=== PATIENT | female | born 1945 | race Two or more races ===

== ENCOUNTER 2018-11-06 22:08 | Emergency (ER) | payer OTHER ==
[~2018-11-06] VITALS: Ht 149.9 cm; Wt 86.2 kg
[2018-11-06 22:20] VITALS: BP 196/83
[2018-11-06] MEDS ORDERED: cefTRIAXone SOD 1,000 MG VL IM ONE (23:45)
[2018-11-06] MEDS ORDERED: DEXAMETHASONE SOD PHOS 10MG/1ML VIAL INJ IM ONE (23:45)
[2018-11-06] MEDS ORDERED: IBUPROFEN 800 MG TAB PO ONE (23:45)
== END 2018-11-07 03:49 | disposition home or self-care (01) ==
LOC: ER 22:12
DX: J06.9 Acute upper respiratory infection, unspecified (principal)
CPT/HCPCS: 96372; 99283; J0696; J1100

== ENCOUNTER 2019-03-16 09:29 | Emergency (ER) | payer OTHER ==
[~2019-03-16] VITALS: Ht 149.9 cm; Wt 72.6 kg
[2019-03-16 10:00] VITALS: BP 160/70
[2019-03-16 10:26] LABS: Basophils # (auto) 0 uL; Basophils % (auto) 0.4 % (0.0-2.0); Eosinophils # (auto) 0.1 uL; Eosinophils % (auto) 1.3 % (0.0-7.0); Hemoglobin 11.7 g/dL (12.2-16.2); Lymphocytes % (auto) 11.2 % (10.0-50.0); Mean Corpuscular Hemoglobin 29.7 pg (28.0-32.0); Mean Corpuscular Hgb Conc. 32.4 g/dL (32.0-36.0); Mean Corpuscular Volume 91.5 fL (80.0-100.0); Monocytes # (auto) 0.4 uL; Monocytes % (auto) 5.2 % (0.0-12.0); Neutrophils % (auto) 81.9 % (37.0-80.0); Platelet Count (auto) 283 10^3/uL (140-450); Red Blood Cells 3.93 10^6/uL (4.0-5.20); Red Cell Distribution Width 13.9 % (11.8-14.3); White Blood Cell 8.6 10^3/uL (4.4-10.8)
[2019-03-16 10:42] LABS: Albumin 3.5 g/dL (3.4-5.0); BUN/Creatinine Ratio 17.8; Calcium 9.2 mg/dL (8.5-10.1); Potassium 4.7 mmol/L (3.5-5.1)
[2019-03-16 10:45] LABS: Urine Bacteria MANY /hpf (None Seen); Urine Blood 2+ /uL (Negative); Urine Mucus FEW (None Seen); Urine Specific Gravity 1.015 (1.001-1.035); Urine WBC 1038 /hpf (0 - 5); Urine WBC Clumps PRESENT /hpf (None Seen)
[2019-03-16 10:45] LABS: Bilirubin, Total 0.3 mg/dL (0.2-1.0)
[2019-03-16] MEDS ORDERED: cefTRIAXone SOD 1,000 MG VL IM ONE (11:00)
[2019-03-16] MEDS ORDERED: LIDOCAINE 2% (LOCAL ANESTH.) PF 5ml SDV ONE (11:06)
== END 2019-03-16 11:32 | disposition home or self-care (01) ==
LOC: ER 09:29
DX: N39.0 Urinary tract infection, site not specified (principal); E11.9 Type 2 diabetes mellitus without complications; I10 Essential (primary) hypertension; Z90.49 Acquired absence of other specified parts of digestive tract; Z90.710 Acquired absence of both cervix and uterus; Z88.8 Allergy status to other drugs, medicaments and biological substances
CPT/HCPCS: 36415; 74176; 80053; 81001; 85025; 96372; 99284; J0696; J2001

== ENCOUNTER 2019-04-23 15:29 | Emergency (ER) | payer OTHER ==
[~2019-04-23] VITALS: Ht 149.9 cm; Wt 77.6 kg
[2019-04-23 19:59] VITALS: BP 153/61
[2019-04-23 20:18] LABS: Urine Bacteria FEW /hpf (None Seen); Urine Blood 2+ /uL (Negative); Urine WBC 573 /hpf (0 - 5); Urine WBC Clumps PRESENT /hpf (None Seen)
== END 2019-04-23 20:33 | disposition home or self-care (01) ==
LOC: ER 15:29
DX: N39.0 Urinary tract infection, site not specified (principal); E11.9 Type 2 diabetes mellitus without complications; I10 Essential (primary) hypertension; Z90.49 Acquired absence of other specified parts of digestive tract; Z90.710 Acquired absence of both cervix and uterus; Z88.6 Allergy status to analgesic agent
CPT/HCPCS: 81001; 99283; J7030

== ENCOUNTER 2019-07-22 08:31 | Emergency (ER) | payer OTHER ==
[~2019-07-22] VITALS: Ht 149.9 cm; Wt 74.5 kg
[2019-07-22 11:05] LABS: Basophils # (auto) 0.1 uL; Basophils % (auto) 0.6 % (0.0-2.0); Eosinophils # (auto) 0.2 uL; Eosinophils % (auto) 1.8 % (0.0-7.0); Hematocrit 31.1 % (36.0-46.0); Lymphocytes # (auto) 1.2 uL; Lymphocytes % (auto) 12.1 % (10.0-50.0); Mean Corpuscular Hemoglobin 28.4 pg (28.0-32.0); Mean Corpuscular Hgb Conc. 32.1 g/dL (32.0-36.0); Mean Corpuscular Volume 88.5 fL (80.0-100.0); Monocytes # (auto) 0.5 uL; Monocytes % (auto) 5.2 % (0.0-12.0); Neutrophils # (auto) 7.9 uL; Neutrophils % (auto) 80.3 % (37.0-80.0); Nucleated Red Blood Cells % 0.1 %; Platelet Count (auto) 381 10^3/uL (140-450); Red Blood Cells 3.52 10^6/uL (4.0-5.20); Red Cell Distribution Width 15.9 % (11.8-14.3); White Blood Cell 9.8 10^3/uL (4.4-10.8)
[2019-07-22 11:25] LABS: Albumin 3.2 g/dL (3.4-5.0); Calcium 9.2 mg/dL (8.5-10.1); Potassium 5.1 mmol/L (3.5-5.1)
[2019-07-22 11:28] LABS: BUN/Creatinine Ratio 14.6; Bilirubin, Total 0.2 mg/dL (0.2-1.0); Total Protein 8.8 g/dL (6.4-8.2)
[2019-07-22 13:07] LABS: Urine Specific Gravity 1.015 (1.001-1.035)
[2019-07-22 13:09] LABS: Urine Blood 3+ /uL (Negative)
[2019-07-22 13:37] LABS: Urine WBC 325 /hpf (0 - 5)
[2019-07-22 13:39] LABS: Urine Bacteria FEW /hpf (None Seen)
[2019-07-22 15:05] VITALS: BP 165/72
== END 2019-07-22 15:14 | disposition home or self-care (01) ==
LOC: ER 08:33
DX: N39.0 Urinary tract infection, site not specified (principal); N93.9 Abnormal uterine and vaginal bleeding, unspecified; E11.9 Type 2 diabetes mellitus without complications; I10 Essential (primary) hypertension; Z90.710 Acquired absence of both cervix and uterus; Z90.49 Acquired absence of other specified parts of digestive tract; Z88.6 Allergy status to analgesic agent; Z88.5 Allergy status to narcotic agent
CPT/HCPCS: 36415; 80053; 81001; 85025

== ENCOUNTER 2020-01-02 17:37 | Inpatient (IN) | payer OTHER ==
[~2020-01-02] VITALS: Ht 149.9 cm; Wt 72.2 kg
[2020-01-02 18:22] LABS: Platelet Count (auto) 370 10^3/uL (140-450); Red Blood Cells 2.88 10^6/uL (4.0-5.20)
[2020-01-02 18:24] LABS: Hematocrit 25.6 % (36.0-46.0); Hemoglobin 7.9 g/dL (12.2-16.2); Mean Corpuscular Hemoglobin 27.3 pg (28.0-32.0); Mean Corpuscular Hgb Conc. 30.8 g/dL (32.0-36.0); Mean Corpuscular Volume 88.7 fL (80.0-100.0); Red Cell Distribution Width 15.7 % (11.8-14.3); White Blood Cell 17.2 10^3/uL (4.4-10.8)
[2020-01-02 18:42] LABS: Albumin 2.4 g/dL (3.4-5.0); Basophils % (manual) 0 (0.0-2.0); Blast Cells 0; Eosinophils % (manual) 0 (0-7); Metamyelocytes % 0; Myelocytes % 0; Potassium 4.6 mmol/L (3.5-5.1); Promyelocytes % 0; Reactive Lymphocytes 0
[2020-01-02 18:44] LABS: BUN/Creatinine Ratio 19.1; Bilirubin, Total 0.3 mg/dL (0.2-1.0); Total Protein 8.4 g/dL (6.4-8.2)
[2020-01-02 18:50] LABS: Urine Bacteria FEW /hpf (None Seen); Urine Blood 3+ /uL (Negative); Urine WBC 3921 /hpf (0 - 5); Urine WBC Clumps PRESENT /hpf (None Seen)
[2020-01-02 18:55] LABS: Urine Specific Gravity 1.012 (1.001-1.035)
[2020-01-02] MEDS ORDERED: SODIUM CHLORIDE 0.9% 1,000 ML IVB ONE (19:19)
[2020-01-02] MEDS ORDERED: cefTRIAXone 1GM/50ML D5W 50 ML IV ONE (19:30)
[2020-01-02] MEDS ORDERED: ASPirin-EC 81 mg tab PO ONE (19:45)
[2020-01-02 20:04] LABS: INR 1.01 (0.9-1.15); Partial Thromboplastin Time 35.4 sec (23.64-32.05)
[2020-01-02] MEDS ORDERED: SODIUM BICARBONATE 8.4 % INJ 50ML VIAL IV ONE (20:30)
[2020-01-02 22:24] LABS: Band Neutrophils % (manual) 2; Lymphocytes % (manual) 4 (10.0-50.0); Monocytes % (manual) 4 (0-12)
[2020-01-03] VITALS (14 sets, daily range): BP systolic 100–147; BP diastolic 42–80
[2020-01-03] MEDS ORDERED: MORPHINE SULF INJ 2 MG/ML SYRINGE 1ML IV PRN
[2020-01-03] MEDS ORDERED: NITROGLYCERIN 0.4 MG SL TAB SL PRN
[2020-01-03] MEDS ORDERED: ENOXAPARIN SOD 60 MG/0.6 ML SYRINGE SC SCH (00:30)
[2020-01-03] MEDS: SODIUM CHLORIDE 0.9% 1,000 ML IV SCH ×2 (00:48→13:13)
--- NOTE | 2020-01-03 01:40 | NUR ---
Admit to [facility] admitted to [facility] via gurney on bi solutions architect, and portable 02. Patient transferred to bed, connected to unit monitoring and oxygen, and weighed by bedscale. Patient oriented to Milton elmore RN, unit, room, bed, and unit policies regarding patient care and visiting hours. All questions and concerns addressed, patient verbalized understanding. NOTE: belongings: night gown, underwear, purse, cell phone with fire extinguisher charger,glasses, and three 20 dollars, three one dollars.
[2020-01-03] MEDS ORDERED: OMEP20TA PO (02:07)
[2020-01-03] MEDS ORDERED: NIFE1TAB30 PO (02:07)
[2020-01-03] MEDS ORDERED: HYDR25TA4 PO (02:07)
[2020-01-03] MEDS ORDERED: GLIP5TAB12 PO (02:07)
[2020-01-03] MEDS ORDERED: OXY5T PO (02:07)
[2020-01-03] MEDS: ACCU-CHEK COMFORT CURVE STRIP VI SCH ×6 (03:46→21:41)
[2020-01-03] MEDS: InsuLIN REG 1unit/0.01ml Soln (100units/ml) SC SCH ×6 (03:47→21:44)
[2020-01-03 05:04] LABS: Basophils # (auto) 0 10 ^3/uL (0-0.2); Basophils % (auto) 0.3 % (0.0-2.0); Eosinophils # (auto) 0 10 ^3/uL (0-0.8); Eosinophils % (auto) 0.2 % (0.0-7.0); Hematocrit 21.6 % (36.0-46.0); Lymphocytes # (auto) 0.9 10 ^3/uL (0.4-5.4); Lymphocytes % (auto) 7.7 % (10.0-50.0); Mean Corpuscular Hemoglobin 27.1 pg (28.0-32.0); Mean Corpuscular Hgb Conc. 31.5 g/dL (32.0-36.0); Mean Corpuscular Volume 85.9 fL (80.0-100.0); Monocytes # (auto) 0.7 10 ^3/uL (0-1.3); Monocytes % (auto) 5.9 % (0.0-12.0); Neutrophils # (auto) 10.4 10 ^3/uL (1.6-8.6); Neutrophils % (auto) 85.9 % (37.0-80.0); Nucleated Red Blood Cells % 0.1 %; Platelet Count (auto) 252 10^3/uL (140-450); Red Blood Cells 2.51 10^6/uL (4.0-5.20); Red Cell Distribution Width 15.9 % (11.8-14.3); White Blood Cell 12.1 10^3/uL (4.4-10.8)
[2020-01-03 05:06] LABS: Hemoglobin 6.8 g/dL (12.2-16.2)
--- NOTE | 2020-01-03 05:10 | NUR ---
CALLED BACK CALL BACK. NOTIFIED LOW HEMOGLOBIN LEVEL ON REPEAT LAB DRAW. ORDERS RECEIVED.
[2020-01-03 05:35] LABS: Cholesterol 138 mg/dL (< 200); HDL Cholesterol 40 mg/dL (40-59); LDL Cholesterol 73 mg/dL (< 100); Triglycerides 177 mg/dL (< 150)
[2020-01-03 07:42] LABS: Albumin 2.4 g/dL (3.4-5.0); Calcium 7.8 mg/dL (8.5-10.1); Potassium 3.6 mmol/L (3.5-5.1)
[2020-01-03 07:46] LABS: Bilirubin, Total 0.3 mg/dL (0.2-1.0); Total Protein 7.6 g/dL (6.4-8.2)
--- NOTE | 2020-01-03 08:00 | NUR ---
BLOOD SUGAR 62. ORANGE JUICE PROVIDED. PATIENT ALERT AND ORIENTED. AWAITING BREAKFAST TRAY.
--- NOTE | 2020-01-03 08:00 | NUR ---
SKIN MOISTURE ASSOCIATED DERMITITIS NOTED TO RIGHT LOWER ABD SLIGHTLY EXTENDING TO LONNY AREA AND HYPERPIGMENTATION TO SACRUM. SKIN CLEANSED, ZGUARD APPLIED. PATIENT STATING AT HOME SHE WAS USING A DIAPER TO STAY DRY DUE TO RETENTION AND SOME LEAKING. PICTURE TO BE TAKEN. W/C ORDER TO BE PLACED. PT CAN ASSIST WITH TURNING AT THIS TIME BUT NEEDS REMINDING.
[2020-01-03 08:01] LABS: BUN/Creatinine Ratio 20.4
[2020-01-03] MEDS: DOCUSATE SOD 100 MG CAP PO SCH (09:43)
[2020-01-03] MEDS: ASPirin 81 mg TAB PO SCH (09:52)
[2020-01-03] MEDS: CARVEDILOL 3.125 MG TAB PO SCH ×2 (09:52→21:41)
--- NOTE | 2020-01-03 09:53 | NUR ---
Selling Underwriter at bedside Presidential Support Specialist updated on patients status. Per Presidential Support Specialist patient pending stress test today. Beta blockers and DAVIDA inhibitor held. Presidential Support Specialist aware of hgb. ok to administer plavix and asa at this time. New orders for OB and Abx at this time as there is no coverage. Addendum: 01/03/20 at 0955 by Muriel Ayon RN Presidential Support Specialist aware of episodes of Atrial fibrillation Rvr- non sustaining.
[2020-01-03] MEDS ORDERED: cefTRIAXone 1GM/50ML D5W 50 ML IV ONE (10:00)
[2020-01-03] MEDS ORDERED: LISINOPRIL 10 MG TAB PO SCH (10:00)
[2020-01-03] MEDS ORDERED: CLOPIDOGREL BISULFATE 75 MG TAB PO SCH (10:00)
--- NOTE | 2020-01-03 10:12 | NUR ---
CRITICAL LAB TROP 1.110. BACKPACKERS MANAGER BERNIE AWARE. SEE NEW ORDERS.
[2020-01-03] MEDS: ADENOSINE 55 MG in GIVE UN-DILUTED 0 ML IV STA (11:04)
--- NOTE | 2020-01-03 11:34 | NUR ---
MARKETING OPERATIONS MANAGER AT BEDSIDE.
--- NOTE | 2020-01-03 12:00 | NUR ---
NUTRITION POOR APPETITE NOTED. REFUSED LUNCH AT THIS TIME.
--- NOTE | 2020-01-03 12:00 | NUR ---
BRADYCARDIA PATIENTS HR NOTED 30'S, PT ASYMPTOMATIC. SLEEPING, BP STABLE 122/42. EXTERNAL PADS IN PLACE. JET DYEING MACHINE OPERATOR PAGED. NO NEW ORDERS AT THIS TIME.
--- NOTE | 2020-01-03 13:15 | NUR ---
NO FURTHER EPISODES OF BRADYCARDIA NOTED AT THIS TIME. VSS.
--- NOTE | 2020-01-03 13:28 | NUR ---
PAGED DR. CONRAD PAGED RE: ORDER VERIFICATION PER U/S TECH.
--- NOTE | 2020-01-03 13:29 | NUR ---
U/S TECH AT BEDSIDE.
--- NOTE | 2020-01-03 13:52 | NUR ---
AT BEDSIDE DR. CONRAD UPDATED ON PATIENTS STATUS. MD AWARE OF HEMATURIA, TROPONIN, BLOOD LEVEL AT THIS TIME. U/S CLARIFICATION COMPLETED. U/S AWARE. SEE NEW ORDERS.
--- NOTE | 2020-01-03 13:54 | NUR ---
NM UPDATED JOLINDSEYH FROM NM UPDATED. MADE AWARE PATIENT HAS NOTED TO BE IN AFIB RVR AND MARGARETH LOW 30'S. STRESS TEST PER BEA IS TO BE HELD.
--- NOTE | 2020-01-03 14:25 | NUR ---
U/S TECH AT BEDSIDE.
--- NOTE | 2020-01-03 14:25 | NUR ---
UROLOGY DR. WHITLEY AT BEDSIDE. MD UPDATED ON PATIENTS STATUS. SEE MD ORDERS. PATIENT TO BE DISCHARGED WITH TEE CATHETER.
[2020-01-03] MEDS ORDERED: DEXTROSE (50%) 50ML SYRG IV PRN ×2 (14:30)
--- NOTE | 2020-01-03 16:00 | NUR ---
ACTIVITY PATIENT ASSISTED OOB TO BSC. PATIENT ONLY ABLE TO PASS GAS. SKIN CARE PROVIDED. PT ASSISTED BACK TO BED WITHOUT INCIDENCE.
--- NOTE | 2020-01-03 18:00 | NUR ---
NUTRITION PATIENT ABLE TO FEED SELF. NO DIFFICULTY SWALLOWING NOTED. VSS.
--- NOTE | 2020-01-03 19:50 | NUR ---
Opening Note Report received from ann JIN. Patient is A/Ox4 resting comfortably in bed, no s/s of distress. Patient connected to monitor, in Sinus Rhythm at this time. Patient on room air, SPO2 at 100%. Physical assessment done-see interventions. Coates catheter in place draining torres red hematuria. Generalized scabs noted throughout body, patient states she scratches herself often. POC discussed with patient. Fall precautions in place, call light within reach.
[2020-01-03] MEDS ORDERED: ATORVASTATIN 20 MG TAB PO SCH (22:00)
--- NOTE | 2020-01-03 22:29 | NUR ---
CRITICAL LAB Troponin 1.14, called in by order entry technician Bela. Cardio already on board and aware of elevated trops. Patient pending for stress test tomorrow. Patient asymptomatic at this time, denies any chest pain or discomfort.
[2020-01-04] VITALS: BP_SYST 140; BP_SYST 147; BP_DIAS 64; BP_DIAS 65
[2020-01-04] MEDS: SODIUM CHLORIDE 0.9% 1,000 ML IV SCH (02:53)
--- NOTE | 2020-01-04 03:42 | NUR ---
AM care Patient given bed bath using CHG wipes and warm soapy wash cloths. Skin reassessed at this time, no new changes. Oral care done at this time, Coates care done. Complete linen and gown change provided to patient. Patient tolerated well. Patient repositioned.
[2020-01-04 03:47] LABS: Basophils # (auto) 0 10 ^3/uL (0-0.2); Basophils % (auto) 0.3 % (0.0-2.0); Eosinophils # (auto) 0.1 10 ^3/uL (0-0.8); Eosinophils % (auto) 0.7 % (0.0-7.0); Hematocrit 27.4 % (36.0-46.0); Hemoglobin 8.9 g/dL (12.2-16.2); Lymphocytes # (auto) 0.7 10 ^3/uL (0.4-5.4); Mean Corpuscular Hemoglobin 28.4 pg (28.0-32.0); Mean Corpuscular Hgb Conc. 32.4 g/dL (32.0-36.0); Mean Corpuscular Volume 87.7 fL (80.0-100.0); Monocytes # (auto) 0.7 10 ^3/uL (0-1.3); Nucleated Red Blood Cells % 0.1 %; Platelet Count (auto) 173 10^3/uL (140-450); Red Blood Cells 3.12 10^6/uL (4.0-5.20); Red Cell Distribution Width 15.5 % (11.8-14.3); White Blood Cell 9.4 10^3/uL (4.4-10.8)
[2020-01-04 04:00] VITALS: BP 149/70
[2020-01-04 04:08] LABS: Calcium 7.2 mg/dL (8.5-10.1); Potassium 3.7 mmol/L (3.5-5.1)
[2020-01-04 04:17] LABS: BUN/Creatinine Ratio 22.1
--- NOTE | 2020-01-04 04:18 | NUR ---
Critical Labs CO2 9 BUN 164 Trop 0.985 All labs trending down. Deisy MURDOCK's aware. Patient pending stress test today, nephro consult and VQ scan for today.
[2020-01-04] MEDS: ACCU-CHEK COMFORT CURVE STRIP VI SCH ×4 (06:13→21:25)
[2020-01-04] MEDS: InsuLIN REG 1unit/0.01ml Soln (100units/ml) SC SCH ×4 (06:15→21:25)
--- NOTE | 2020-01-04 06:25 | NUR ---
2nd IV Line for stress test placed IV insertion IV access obtained, via clean sterile technique by inserting 22 gauge catheter at right forearm after 1 attempt. IV secured properly. No trauma to site. Patient tolerated well.
--- NOTE | 2020-01-04 07:25 | NUR ---
Closing Patient sleeping, visible rise and fall of chest noted. No signs of distress noted. Care endorsed to dayshift ANNABEL Gibson to assume care of patient.
[2020-01-04 07:45] VITALS: BP 149/65
--- NOTE | 2020-01-04 07:45 | NUR ---
ELIMINATION Patient requested to get to bedside commode, unable to have a successful bowel movement. Patient tolerated activity.
--- NOTE | 2020-01-04 08:30 | NUR ---
NUTRITION Patient NPO for procedure this AM.
[2020-01-04] MEDS: cefTRIAXone 1GM/50ML D5W 50 ML IV SCH (09:00)
[2020-01-04] MEDS: SODIUM BICARBONATE 50ML VIAL 150 ML in D5W 5% 1,000 ML IV SCH ×3 (09:36→19:43)
[2020-01-04] MEDS: CARVEDILOL 3.125 MG TAB PO SCH ×2 (09:36→21:24)
[2020-01-04] MEDS: DOCUSATE SOD 100 MG CAP PO SCH (09:37)
--- NOTE | 2020-01-04 09:40 | NUR ---
MEDICATIONS Patient refused Aspirin this AM.
[2020-01-04] MEDS: ASPirin 81 mg TAB PO SCH (09:41)
--- NOTE | 2020-01-04 10:30 | NUR ---
MD Dr. Cook at bedside updated on patient condition with no new orders. MD spoke to patient regarding plan of care and questions/concerns answered.
--- NOTE | 2020-01-04 10:45 | NUR ---
WOUND CARE NOTE: PATIENT NOTED UPON ADMIT TO HAVE SKIN INTEGRITY ISSUES, WOUND PHOTOS TAKEN AT THAT TIME BY BEDSIDE NURSE FOR REFERENCE. [facility] DIAGNOSIS OF SEPSIS, UTI, NSTEMI, IRON DEFICIENCY. CURRENT JERICA SCORE IS 20. PATIENT CAN SELF TURN/REPOSITION SELF. PATIENT IS NOTED TO HAVE VERY DARK RED INTERTRIGINOUS RASH TO INTRAGLUTEAL FOLD, UMBILICUS, AND MILD INTERTRIGO TO ABDOMINAL SKIN FOLD AREA. PATIENT WOULD BENEFIT FROM BID/PRN APPLICATION WITH ANTIFUNGAL CLEAR OINTMENT TO THE ABOVE MENTIONED AREAS, OPTIFOAM GENTLE SACRAL DRESSING PREVENATIVE, SKIN/WOUND CARE PLAN, CONTINUED MONITORING BY WOUND CARE TEAM. Addendum: 01/04/20 at 1717 by Zulema Mckoy RN Amended: Links added.
--- NOTE | 2020-01-04 11:00 | NUR ---
PROCEDURES Patient left via wheelchair accompanied by Marci JIN, connected to cardiac technologist for procedures.
[2020-01-04 11:44] VITALS: BP 144/77
[2020-01-04] MEDS: ADENOSINE 55 MG in GIVE UN-DILUTED 0 ML IV STA (11:47)
--- NOTE | 2020-01-04 12:40 | NUR ---
ARRIVED Patient arrived back into room from STRESS test and VQ SCAN.
--- NOTE | 2020-01-04 12:45 | NUR ---
IV Patient pulled out IV to the right hand. Catheter intact. Pressure applied and dressing applied.
--- NOTE | 2020-01-04 13:10 | NUR ---
FAMILY Received phone call from patients grandson Rupert, correct password provided and updated on patient condition.
--- NOTE | 2020-01-04 13:26 | NUR ---
Nutrition Assessment Notes Please refer to link for full assessment notes. Est Energy needs: 2717-4476 kcals (20-23) kcal/kgBW) Est Protein needs: 65-72 gms/day (1.0-1.1) gm/kgBW) Will continue to monitor and reassess prn. Addendum: 01/04/20 at [address] Amended: Links added.
[2020-01-04 14:25] LABS: Calcium 7.6 mg/dL (8.5-10.1); Potassium 3.8 mmol/L (3.5-5.1)
[2020-01-04 14:33] LABS: BUN/Creatinine Ratio 21.1
[2020-01-04] MEDS ORDERED: BUMETANIDE 2.5mg/10ml (0.25 mg/ml) INJ IV ONE (15:00)
[2020-01-04 15:45] VITALS: BP 146/65
--- NOTE | 2020-01-04 19:45 | NUR ---
Opening Note Patient A/O x4 resting comfortably in bed. Patient connected to monitor, on room air with O2 sats >98%. Physical assessment done-see interventions. Coates catheter in place draining pink tinged urine to gravity. POC discussed with patient, all questions answered. Will monitor closely. Call light within reach.
[2020-01-04 20:00] VITALS: BP 148/61
--- NOTE | 2020-01-04 21:33 | NUR ---
Paged Patient c/o pain to her lower back. No ordered pain medications at this time. Sent out a page for Dr.L Winkler. Awaiting call back
--- NOTE | 2020-01-04 21:52 | NUR ---
Received call back Spoke with Dr. Twila Winkler. Updated MD on patient status. Verified with patient med rec for Oxycodone 5mg. Patient states she takes that at home for pain. Updated MD on patients home medication for pain. New order received from MD. Order read back and verified. Will carry out order.
[2020-01-04] MEDS ORDERED: oxyCODONE HCL 5MG TAB PO PRN (22:00)
[2020-01-05] VITALS (7 sets, daily range): BP systolic 96–174; BP diastolic 33–67
[2020-01-05] MEDS ORDERED: oxyCODONE ER 10 MG TAB PO SCH
[2020-01-05 03:32] LABS: Basophils # (auto) 0 10 ^3/uL (0-0.2); Basophils % (auto) 0.2 % (0.0-2.0); Eosinophils # (auto) 0 10 ^3/uL (0-0.8); Eosinophils % (auto) 0.1 % (0.0-7.0); Hematocrit 25.8 % (36.0-46.0); Hemoglobin 8.6 g/dL (12.2-16.2); Lymphocytes # (auto) 0.3 10 ^3/uL (0.4-5.4); Lymphocytes % (auto) 2.9 % (10.0-50.0); Mean Corpuscular Hemoglobin 28.5 pg (28.0-32.0); Mean Corpuscular Hgb Conc. 33.5 g/dL (32.0-36.0); Monocytes # (auto) 0.7 10 ^3/uL (0-1.3); Monocytes % (auto) 5.9 % (0.0-12.0); Neutrophils # (auto) 10.1 10 ^3/uL (1.6-8.6); Neutrophils % (auto) 90.9 % (37.0-80.0); Nucleated Red Blood Cells % 0.1 %; Platelet Count (auto) 176 10^3/uL (140-450); Red Blood Cells 3.03 10^6/uL (4.0-5.20); Red Cell Distribution Width 15.4 % (11.8-14.3); White Blood Cell 11.1 10^3/uL (4.4-10.8)
[2020-01-05 03:49] LABS: Calcium 6.6 mg/dL (8.5-10.1)
[2020-01-05 04:07] LABS: Potassium 2.7 mmol/L (3.5-5.1)
--- NOTE | 2020-01-05 04:43 | NUR ---
Kevin Ybarra re: critical potassium level and BUN level Will wait for call back
[2020-01-05] MEDS: SODIUM BICARBONATE 50ML VIAL 150 ML in D5W 5% 1,000 ML IV SCH (04:49)
[2020-01-05] MEDS ORDERED: POTASSIUM CHL 20 Meq TABLET PO ONE ×2 (05:00→21:30)
--- NOTE | 2020-01-05 05:03 | NUR ---
Received call back from Dr.L Peterson MURDOCK updated on critical Potassium and BUN level New orders received. All orders read back and verified Will carry out orders
--- NOTE | 2020-01-05 05:35 | NUR ---
Emesis Patient had one episode of emesis noted after oral potassium given. Green colored bile noted. Will notify
--- NOTE | 2020-01-05 06:00 | NUR ---
Paged Dr.L Winkler regarding critical repeat Potassium level of 2.8 Will notify MD of critical potassium and episode of emesis Awaiting call back
[2020-01-05] MEDS: ACCU-CHEK COMFORT CURVE STRIP VI SCH ×4 (06:30→21:32)
[2020-01-05] MEDS: InsuLIN REG 1unit/0.01ml Soln (100units/ml) SC SCH ×4 (06:30→21:33)
--- NOTE | 2020-01-05 06:50 | NUR ---
Call Back from Received call back from MD Zuniga. updated on second critical potassium level and patients episode of emesis. New order received for 20MEQ K rider X 3 and Phenergan 12.5mg Q6HPRN for nausea. Order read back and verified with
[2020-01-05] MEDS ORDERED: POTASSIUM CHL 20MEQ/100ML 100 ML IV SCH ×2 (07:00→08:30)
--- NOTE | 2020-01-05 07:18 | NUR ---
Closing Note Report endorsed to ann Villanueva. Patient is resting comfortably at this time. Endorsed pending K riders to AM shift ANNABEL.
[2020-01-05] MEDS ORDERED: SODIUM BICARBONATE IV SCH (07:30)
[2020-01-05] MEDS ORDERED: D5W 5% IV SCH (07:30)
[2020-01-05] MEDS ORDERED: POTASSIUM CHLORIDE IV SCH (07:30)
--- NOTE | 2020-01-05 07:45 | NUR ---
ASSESS- PT. LYING IN BED WITH EYES CLOSED, AROUSABLE. ALERT AND ORIENTED TIMES FOUR. DENIES ANY PAIN OR DISCOMFORT. LUNGS CLEAR KIRTI. INSPIRATORY AND EXPIRATORY. NO SOB. ON R/A. ABD. SOFT, FLAT, NON-TENDER. BOWEL SOUNDS ALL FOUR QUADRANTS. PT. NAUSEATED SOME, PREVIOUSLY VOMITED ON ADMITTING OFFICER. EXPLAINED TO PT. WILL HOLD BREAKFAST SO PT. DOES NOT VOMIT AGAIN. F/C TO GRAVITY WITH CLOUDY PINK TINGED URINE WITH SEDIMENT. RADIAL PULSES STRONG, PALPABLE KIRTI. DORSALIS PEDAL PULSES STRONG, PALPABLE KIRTI. NO EDEMA. PT. MOVES ALL EXTREMITIES WITHOUT DIFFICULTY. ABLE TO TURN SELF IN BED. SKIN INTACT.
--- NOTE | 2020-01-05 08:22 | NUR ---
DR. LUNA Provider/Hospitalist at bedside. GAVE UPDATE ON PT. SAID TO GIVE D5W WITH 3 AMPS SODIUM BICARB WITH 40 MEQ. KCL IV AT 150 CC/HR. TIMES ONE LITER THEN CHANGE IVF TO D5W WITH 3 AMPS SODIUM BICARB WITH 20 MEQ. KCL AT 150 CC/HR. MAINTANCE IVF AND ONLY GIVE KCL RIDER 20 MEQ. TIMES ONE, NOT 60 MEQ. KCL IV ORDERED THIS AM, D'C OTHER 40 MEQ. IV. NOTIFIED PHARMACIST.
[2020-01-05] MEDS: cefTRIAXone 1GM/50ML D5W 50 ML IV SCH (09:33)
[2020-01-05] MEDS: ASPirin 81 mg TAB PO SCH (09:33)
[2020-01-05] MEDS: CARVEDILOL 3.125 MG TAB PO SCH ×2 (09:34→21:32)
[2020-01-05] MEDS: DOCUSATE SOD 100 MG CAP PO SCH (10:00)
[2020-01-05] MEDS: PROMETHAZINE HCL 25 MG/ML 1ML IV PRN ×2 (11:55→21:35)
--- NOTE | 2020-01-05 11:55 | NUR ---
PT. VOMITED APPROXIMATELY 25CC BILE IN EMESIS BAG. PT. SAID SHE IS NAUSEATED. MED. WITH PHENERGAN 12.5 MG. IVP. WILL HOLD LUNCH TRAY FOR NOW.
--- NOTE | 2020-01-05 12:25 | NUR ---
PT. NO LONGER VOMITING. NO NAUSEA.
[2020-01-05] MEDS: POTASSIUM CHLORIDE IV SCH ×2 (14:59→17:07)
[2020-01-05] MEDS: D5W 5% IV SCH ×2 (14:59→17:07)
[2020-01-05] MEDS: SODIUM BICARBONATE IV SCH ×2 (14:59→17:07)
--- NOTE | 2020-01-05 16:00 | NUR ---
PT. HAS BEEN SLEEPING, NO SIGNS OF DISTRESS OR DISCOMFORT. PT'S. HR DECREASED TO 40'S-50'S WHILE ASLEEP SB AND GOES BACK UP RIGHT AWAY INTO THE 60'S WITH OCCASIONAL PVC'S. MONITORING VSS.
[2020-01-05 19:17] LABS: BUN/Creatinine Ratio 22.8; Calcium 6.2 mg/dL (8.5-10.1); Potassium 3.1 mmol/L (3.5-5.1)
--- NOTE | 2020-01-05 19:35 | NUR ---
Opening note Report received from ann RN. Patient is A/OX4 resting comfortably in bed. Patient connected to monitor, heart rate in 90's, SPO2 at 95% on room air. Patient denies any pain or discomfort at this time. Physical assessment done-see interventions. Coates draining pink tinged urine with sediment. Patient running ordered fluids. POC discussed, all questions answered. Fall precautions in place, call light within reach.
--- NOTE | 2020-01-05 21:17 | NUR ---
Kevin MURDOCK Spoke with covering MD Maharaj regarding patients potassium and BUN level. One time order for potassium 20MEQ PO X1 obtained. Order read back and verified
[2020-01-05] MEDS: MUPIROCIN 2% OINT 15gm or 22gm TOP SCH (22:16)
[2020-01-06] VITALS: BP 127/41
[2020-01-06] MEDS: SODIUM BICARBONATE IV SCH (00:13)
[2020-01-06] MEDS: POTASSIUM CHLORIDE IV SCH (00:13)
[2020-01-06] MEDS: D5W 5% IV SCH (00:13)
--- NOTE | 2020-01-06 00:26 | NUR ---
Urine Bacterial collected and sent to lab
--- NOTE | 2020-01-06 01:18 | NUR ---
Bed Bath Patient had episode of incontinence of loose dark green BM. Patient given complete bed bath with linen and gown change. CHG wipes used to cleanse patient and Coates catheter. Patient cleansed also with warm soapy water. New antifungal cream applied to abdominal folds, navel and under breasts. New electrodes placed at this time. Patient reconnected to continuous monitor. Heart rate stable in 60's-70's, SPO2 at 98% on room air.
--- NOTE | 2020-01-06 01:20 | NUR ---
Stool occult sample Collected and sent to lab by ILIA Collins
[2020-01-06 03:40] LABS: Basophils # (auto) 0 10 ^3/uL (0-0.2); Basophils % (auto) 0.1 % (0.0-2.0); Eosinophils # (auto) 0.1 10 ^3/uL (0-0.8); Eosinophils % (auto) 0.7 % (0.0-7.0); Hemoglobin 8.8 g/dL (12.2-16.2); Lymphocytes # (auto) 0.6 10 ^3/uL (0.4-5.4); Lymphocytes % (auto) 6.5 % (10.0-50.0); Mean Corpuscular Hemoglobin 28.6 pg (28.0-32.0); Mean Corpuscular Hgb Conc. 33.7 g/dL (32.0-36.0); Mean Corpuscular Volume 84.8 fL (80.0-100.0); Monocytes # (auto) 1.1 10 ^3/uL (0-1.3); Monocytes % (auto) 11.5 % (0.0-12.0); Neutrophils % (auto) 81.2 % (37.0-80.0); Nucleated Red Blood Cells % 0.1 %; Platelet Count (auto) 153 10^3/uL (140-450); Red Blood Cells 3.07 10^6/uL (4.0-5.20); Red Cell Distribution Width 15.2 % (11.8-14.3); White Blood Cell 9.9 10^3/uL (4.4-10.8)
[2020-01-06 03:58] LABS: Potassium 3.4 mmol/L (3.5-5.1)
[2020-01-06 04:00] VITALS: BP 132/46
[2020-01-06 04:00] LABS: BUN/Creatinine Ratio 22.9
--- NOTE | 2020-01-06 04:27 | NUR ---
Morning labs BUN trending down, now at 107 on case for Nephro
[2020-01-06] MEDS: ACCU-CHEK COMFORT CURVE STRIP VI SCH ×4 (06:30→22:39)
[2020-01-06] MEDS: PROMETHAZINE HCL 25 MG/ML 1ML IV PRN ×2 (06:30→12:28)
[2020-01-06] MEDS: InsuLIN REG 1unit/0.01ml Soln (100units/ml) SC SCH ×4 (06:31→22:38)
--- NOTE | 2020-01-06 06:46 | NUR ---
PATIENT DESATURATED DOWN TO 88% ON ROOM AIR AND SUSTAINED. PLACED ON 2L NASAL CANNULA. SPO2 BACK UP TO 100%
--- NOTE | 2020-01-06 07:20 | NUR ---
Closing Patient resting comfortably in bed, connected to continuos monitor with heart rate at 71 and SPO2 at 100%. Nausea now resolved after Phenergan was given. Call light within reach Endorsed care to RN Brant
[2020-01-06 07:56] VITALS: BP 136/56
[2020-01-06] MEDS ORDERED: FUROSEMIDE 40 MG/4 ML VIAL IV ONE (08:00)
[2020-01-06] MEDS: SODIUM CHLORIDE 0.9% 1,000 ML IV SCH ×2 (08:08→22:37)
[2020-01-06] MEDS: POTASSIUM CHL 20MEQ/100ML 100 ML IV SCH ×3 (08:08→17:38)
[2020-01-06] MEDS: cefTRIAXone 1GM/50ML D5W 50 ML IV SCH (08:09)
[2020-01-06] MEDS: DOCUSATE SOD 100 MG CAP PO SCH (08:17)
[2020-01-06] MEDS ORDERED: LOPERAMIDE HCL 2 MG CAP PO ONE (08:45)
--- NOTE | 2020-01-06 08:45 | NUR ---
Dr. Cook at the bedside, seen and examined patient at this time, plan of care discussed with patient, patient refused Hemodialysis at this time, received new orders, will carry out, informed patient about mew orders, patient verbalized understanding.
[2020-01-06] MEDS: ASPirin 81 mg TAB PO SCH (09:45)
[2020-01-06] MEDS: MUPIROCIN 2% OINT 15gm or 22gm TOP SCH ×2 (09:45→22:39)
[2020-01-06] MEDS: CARVEDILOL 3.125 MG TAB PO SCH ×2 (09:45→22:38)
--- NOTE | 2020-01-06 09:45 | NUR ---
Vee CAR FERRIER at the bedside, seen and examined patient at this time, plan of care discussed with patient, patient mentioned to CAR FERRIER that don't want to do Hemodialysis at this time. CAR FERRIER recommend for Coronary angiogram and/or PCI, will wait until kidney function getting better, and Hemodialysis might needed, patient stated that will think about it.
--- NOTE | 2020-01-06 11:30 | NUR ---
Received a call from Rubi (sister), provided password. Updated plan of care, she stated that would like to talk to Primary doctor, she might be able try to talk to patient about Hemodialysis. Rubi ([phone]: cell phone)
[2020-01-06] MEDS: IRON SUCROSE COMPLEX 200 MG in SODIUM CHL 0.9% 100 ML IV SCH (11:34)
--- NOTE | 2020-01-06 11:45 | NUR ---
BM with green color, solid with liquid, Imodium given as ordered. Perineal care provided, partial linen changed. Room air O2 saturation 85-86%, continue O2 NC 2 LPM, O2 saturation 100%.
[2020-01-06 11:58] VITALS: BP 94/43
--- NOTE | 2020-01-06 12:14 | NUR ---
IV insertion IV access obtained, via clean sterile technique by inserting 22 gauge catheter at left forearm after 1 attempt(s). IV secured properly. No trauma to site. Patient tolerated procedure well.
--- NOTE | 2020-01-06 13:22 | NUR ---
Patient refused Lunch tray due to nauseated, medication given, will continue to monitor and care, safe Soup for patient at this time.
--- NOTE | 2020-01-06 13:58 | NUR ---
Patient sitting up on the bed, no complaining of N/V noted, crackers provided. Will continue to monitor and care.
--- NOTE | 2020-01-06 14:44 | NUR ---
assessment Patient is a 74 year old female in [facility]. Per patients raissa Rupert who is patients caregiver prior to admission patient lived home with family and needed assistance. Per Rupert he cooks, cleans, and drives patient to her appointments. Patients PCP is Dr Kelley. Per Rupert patient was having chest pain and shortness of breath so he called 911. Patient may need home 02 on discharge. I will continue to monitor patients post discharge needs daily. Patient has a fww and a cane for home use. Patient will return home with family on discharge. Rupert verbalized understanding and agreed to discharge plan home. Addendum: 01/06/20 at 1452 by Mary RAO Amended: Links added.
[2020-01-06 16:00] VITALS: BP 109/44
--- NOTE | 2020-01-06 17:30 | NUR ---
Patient sleeping, HR 56-62/min, on O2 NC 2 LPM, O2 saturation 100%, SBP 95-105 mmHg, continue IV hydration as ordered, urine output 1100 ml. No fever noted. No complaining of chest pain noted. Will repeat Potassium after finish total 60 mEq.
--- NOTE | 2020-01-06 18:00 | NUR ---
Blood sugar 181 and patient refused Dinner tray, doesn't feel like to eat anything right now. Patient also refused Lunch tray, only had cracker. No N/V noted at this time, patient stated that would like to sleep. Will hold insulin at this time. Will continue to monitor and care.
--- NOTE | 2020-01-06 19:30 | NUR ---
Opening Shift Note: A&Ox4, resting in bed. Currently on 3LO2 via NC; patient does not wear at home; at baseline, uses a cane/walker; currently bedrest related to generalized weakness; and pain level 0/10. Bed locked in lowest position, side rails up x2, call light within reach, and bed alarm on for patient safety. Pardo inserted on 01/02/20 for retention/obstruction. Patient is to be discharged with pardo catheter per urology. Patient presents with poor appetite/intermittent nausea/continued loose stools. Skin: no open wounds; umbilical/gluteal fold/abdominal fold erythremic rash MILITARY EDUCATION COORDINATOR: antifungal cream applied per WC. IVs: left distal forearm 20 g running NS @ 75 ml/hr inserted on 01/02/20; left proximal forearm 20 g IID inserted on 01/07/20. POC discussed with patient and questions answered. Pending VQ scan for AM and Angio when renal function improves per physician notes.
[2020-01-06 20:00] VITALS: BP 121/47
--- NOTE | 2020-01-06 21:30 | NUR ---
Potassium redraw: After potassium replacement of 60 meq, current potassium level is stable at 4.3.
[2020-01-07] VITALS (7 sets, daily range): BP systolic 105–146; BP diastolic 46–54
[2020-01-07 03:40] LABS: Basophils # (auto) 0 10 ^3/uL (0-0.2); Basophils % (auto) 0.3 % (0.0-2.0); Eosinophils # (auto) 0.1 10 ^3/uL (0-0.8); Hemoglobin 7.7 g/dL (12.2-16.2); Lymphocytes # (auto) 0.6 10 ^3/uL (0.4-5.4); Nucleated Red Blood Cells % 0.1 %
[2020-01-07 03:43] LABS: Hematocrit 23.4 % (36.0-46.0); Lymphocytes % (auto) 6.7 % (10.0-50.0); Mean Corpuscular Hemoglobin 28.6 pg (28.0-32.0); Mean Corpuscular Hgb Conc. 32.9 g/dL (32.0-36.0); Mean Corpuscular Volume 86.8 fL (80.0-100.0); Monocytes # (auto) 0.7 10 ^3/uL (0-1.3); Monocytes % (auto) 8.5 % (0.0-12.0); Neutrophils # (auto) 7.4 10 ^3/uL (1.6-8.6); Neutrophils % (auto) 83.5 % (37.0-80.0); Platelet Count (auto) 130 10^3/uL (140-450); Red Blood Cells 2.69 10^6/uL (4.0-5.20); Red Cell Distribution Width 14.9 % (11.8-14.3); White Blood Cell 8.8 10^3/uL (4.4-10.8)
[2020-01-07 04:08] LABS: Potassium 3.9 mmol/L (3.5-5.1)
[2020-01-07 04:12] LABS: Calcium 5.7 mg/dL (8.5-10.1)
--- NOTE | 2020-01-07 06:30 | NUR ---
Critical calcium: Page sent to Tevin Winkler in regards to critical calcium of 5.7. Communication order to only page Nephro for potassium, BUN, and creatinine.
[2020-01-07] MEDS: ACCU-CHEK COMFORT CURVE STRIP VI SCH ×4 (07:00→22:20)
[2020-01-07] MEDS: InsuLIN REG 1unit/0.01ml Soln (100units/ml) SC SCH ×4 (07:00→22:00)
--- NOTE | 2020-01-07 07:00 | NUR ---
Insulin held for BS of 166 related to patient refusing breakfast related to nausea.
--- NOTE | 2020-01-07 07:15 | NUR ---
Page return from Tevin Winkler: Repeat STAT CBC and BMP to confirm abnormal levels.
--- NOTE | 2020-01-07 07:20 | NUR ---
Opening Shift Note Assumed care of patient, awake and alert, lying on her side. No S/S of distress/SOB or chest pain noted, still complaining N/V noted and stated that don't feeling like want to have breakfast. Instructed on POC and to call for assist PRN, will continue to monitor for changes Q1hr and PRN.
--- NOTE | 2020-01-07 07:23 | NUR ---
Bed tilley provided.
[2020-01-07 08:00] LABS: Basophils # (auto) 0 10 ^3/uL (0-0.2); Eosinophils # (auto) 0.1 10 ^3/uL (0-0.8); Hematocrit 25.5 % (36.0-46.0); Hemoglobin 8.3 g/dL (12.2-16.2); Monocytes # (auto) 0.8 10 ^3/uL (0-1.3); Neutrophils # (auto) 6.9 10 ^3/uL (1.6-8.6); White Blood Cell 8.6 10^3/uL (4.4-10.8)
[2020-01-07 08:01] LABS: Basophils % (auto) 0.2 % (0.0-2.0); Eosinophils % (auto) 1.4 % (0.0-7.0); Lymphocytes # (auto) 0.7 10 ^3/uL (0.4-5.4); Lymphocytes % (auto) 8.3 % (10.0-50.0); Mean Corpuscular Hemoglobin 28.5 pg (28.0-32.0); Mean Corpuscular Hgb Conc. 32.4 g/dL (32.0-36.0); Monocytes % (auto) 9.8 % (0.0-12.0); Neutrophils % (auto) 80.3 % (37.0-80.0); Nucleated Red Blood Cells % 0.1 %; Platelet Count (auto) 134 10^3/uL (140-450)
[2020-01-07 08:19] LABS: BUN/Creatinine Ratio 21.3; Potassium 4.1 mmol/L (3.5-5.1)
[2020-01-07 08:26] LABS: Calcium 5.8 mg/dL (8.5-10.1)
--- NOTE | 2020-01-07 08:26 | NUR ---
PT IS REFUSING VQ SCAN AT THIS TIME.
--- NOTE | 2020-01-07 08:38 | NUR ---
Patient still refused breakfast and medication for N/V.
[2020-01-07] MEDS: cefTRIAXone 1GM/50ML D5W 50 ML IV SCH (08:42)
[2020-01-07] MEDS: DOCUSATE SOD 100 MG CAP PO SCH (08:43)
--- NOTE | 2020-01-07 09:20 | NUR ---
Vee MOTORCOACH OPERATOR at the bedside, seen and examined patient at this time. Received order for EKG 12 leads (HR 35-65/min). Patient still refused VQ scan. John marks.
[2020-01-07] MEDS: MUPIROCIN 2% OINT 15gm or 22gm TOP SCH ×2 (09:42→22:20)
--- NOTE | 2020-01-07 10:18 | NUR ---
Pagegold and received a call back from Vee ANDREW, mahamed to continue Coreg, will order social service consult for AD.
[2020-01-07] MEDS: CARVEDILOL 3.125 MG TAB PO SCH ×2 (10:21→22:19)
[2020-01-07] MEDS: ASPirin 81 mg TAB PO SCH (10:21)
--- NOTE | 2020-01-07 10:35 | NUR ---
Small BM, solid with green mixed brown color, perineal care provided.
[2020-01-07] MEDS: IRON SUCROSE COMPLEX 200 MG in SODIUM CHL 0.9% 100 ML IV SCH (11:27)
[2020-01-07] MEDS: SODIUM CHLORIDE 0.9% 1,000 ML IV SCH (11:27)
--- NOTE | 2020-01-07 12:56 | NUR ---
Received a call from Dr. Winkler, received new orders, will carry out.
[2020-01-07] MEDS ORDERED: CALCIUM GLUC 4.65meq/50ml D5AE 50 ML IV ONE (13:00)
[2020-01-07] MEDS ORDERED: PANTOPRAZOLE 40 MG TAB PO ONE (13:30)
--- NOTE | 2020-01-07 13:30 | NUR ---
Patient still sleeping, refused Lunch, will continue to monitor and care.
--- NOTE | 2020-01-07 13:45 | NUR ---
Nutrition Follow-up Wt.: 72.2 kg Pt reports getting nauseous when trying to eat. Pt refusing food/not eating meals. Pt po intake is poor aeb 0-10% po recorded x2 days. Consider alternative nutrition if pt continues to refuse feeding Est Energy needs: 4173-2504 kcals (20-23) kcal/kgBW) Est Protein needs: 43-58gms/day (0.6-0.8 gm/kgBW pt with JULIUS, if HD consider inc protein) Will continue to monitor and reassess prn. Labs: BUN 81, Creat 3.80H, Gluc 185H, Ca 5.8L, Alb 2.4L GI: Pt has 4 BM 01/06 per RN doc Skin: BS 15 mod risk, full skin detail in all around gear machine operator doc PES: Resolved Increased nutrient needs r/t pt with no PO intake aeb pt is NPO Altered nutrition related lab values r/t current/chronic medical condition aeb elev RFTs, low GFR, hypoalbuminemia, mod hyperglycemia Comments Will continue to closely monitor pertinent labs, PO intake and skin status prn. Will followup in 3-5 days 1) Continue to closely monitor po intake 2) Suggest Renal Specific 50g Pro,2gNa, K2 grams, low phos diet if pt not receiving HD 3) Continue current plan of care Expected Outcomes/Goals: Pt appetite to meet at least 75% PO intake Pt labs to improve
--- NOTE | 2020-01-07 13:54 | NUR ---
Pagegold and received a call back Vee ANDREW, informed that Dr. Peterson irby transfer patient to Tele if clear by surgery manager. Vee ANDREW agreed with the plan to transfer to Tele for continue to monitor and wait the kidney function getting better (possible on Friday will follow up with the lab again).
--- NOTE | 2020-01-07 14:20 | NUR ---
re-assessment Per consult advanced directive. Patient has been provided with advanced directive. Addendum: 01/11/20 at 0821 by Mary Prather Amended: Links added.
--- NOTE | 2020-01-07 15:11 | NUR ---
Dr. Cook at the bedside, seen and examined patient at this time, received order for Lasix 40 MG iv once, and informed MD about transfer to Tele.
[2020-01-07] MEDS ORDERED: FUROSEMIDE 40 MG/4 ML VIAL IV ONE (15:15)
--- NOTE | 2020-01-07 17:33 | NUR ---
Patient woke up and sitting up at the edge of the bed, blood sugar 135, will hold insulin due to patient stated that don't feel like to eat Dinner, no N/V noted. Will continue to monitor and care. Crackers provided with Jello per patient requested.
--- NOTE | 2020-01-07 18:43 | NUR ---
Patient had only 1 Jello, will keep apple sauce and juice from the dinner tray, no complaining of N/V noted. Vital sign stable, no complaining of chest pain, will continue to monitor and care.
--- NOTE | 2020-01-07 22:50 | NUR ---
Pt refused dinner. No S/S of distress. Denies pain. Insulin held due to refusal of dinner, glucose 166. Will continue to monitor.
[2020-01-08] MEDS: SODIUM CHLORIDE 0.9% 1,000 ML IV SCH ×2 (01:07→13:20)
[2020-01-08 03:48] VITALS: BP 145/49
--- NOTE | 2020-01-08 05:30 | NUR ---
Pt remains stable. Pt to be transferred to [facility] room 246A. Report given to Dyan JIN.
--- NOTE | 2020-01-08 05:30 | NUR ---
received reported from Davina anderson
--- NOTE | 2020-01-08 05:33 | NUR ---
Lab at bedside for second time to try to draw from pt. Unsuccessful at 0300. Pt stable.
[2020-01-08] MEDS: InsuLIN REG 1unit/0.01ml Soln (100units/ml) SC SCH ×4 (05:44→23:27)
[2020-01-08] MEDS: ACCU-CHEK COMFORT CURVE STRIP VI SCH ×4 (05:44→22:00)
[2020-01-08 06:08] LABS: Basophils # (auto) 0 10 ^3/uL (0-0.2); Basophils % (auto) 0.3 % (0.0-2.0); Eosinophils # (auto) 0.2 10 ^3/uL (0-0.8); Eosinophils % (auto) 2.3 % (0.0-7.0); Hematocrit 23.7 % (36.0-46.0); Hemoglobin 7.8 g/dL (12.2-16.2); Lymphocytes # (auto) 0.7 10 ^3/uL (0.4-5.4); Lymphocytes % (auto) 9.5 % (10.0-50.0); Mean Corpuscular Hemoglobin 28.9 pg (28.0-32.0); Mean Corpuscular Hgb Conc. 32.9 g/dL (32.0-36.0); Mean Corpuscular Volume 87.8 fL (80.0-100.0); Monocytes # (auto) 0.8 10 ^3/uL (0-1.3); Monocytes % (auto) 10.1 % (0.0-12.0); Neutrophils # (auto) 6.1 10 ^3/uL (1.6-8.6); Neutrophils % (auto) 77.8 % (37.0-80.0); Platelet Count (auto) 122 10^3/uL (140-450); Red Cell Distribution Width 15.2 % (11.8-14.3); White Blood Cell 7.8 10^3/uL (4.4-10.8)
--- NOTE | 2020-01-08 06:16 | NUR ---
patient transferred from [facility]/Opening Shift Note Assumed care of patient, awake and alert. No S/S of distress/SOB or pain. Patient has pardo bag draining and patent. patient has iv patent and asymptomatic running NS at 75ml. patient connect to 2l nasal cannula oxygen reading 96%. skin is intact. per patient she has not ambulated while in hospital patient has no history of falls however uses cane and walker at home. Patient has active range of motion. bed alarm on, call light within reach, and fall precautions in place. Instructed on POC and to call for assist PRN, will continue to monitor for changes Q1hr and PRN.
--- NOTE | 2020-01-08 06:22 | NUR ---
Pt transferred and stable at time of transfer. AM accucheck done, Glucose 153/ 2 units given. Care endorsed.
[2020-01-08 06:24] LABS: Potassium 3.3 mmol/L (3.5-5.1)
[2020-01-08 06:28] LABS: BUN/Creatinine Ratio 21.3; Calcium 6.1 mg/dL (8.5-10.1); Phosphorus 3.7 mg/dL (2.5-4.90)
[2020-01-08 06:29] VITALS: BP 132/59
--- NOTE | 2020-01-08 07:20 | NUR ---
report given to dayshift rn patient denies sob distress or pain.
--- NOTE | 2020-01-08 07:34 | NUR ---
endorse care to ANNABEL king for potassium 3.3 and pharmacy medication clarification.
[2020-01-08 08:00] VITALS: BP 135/53
[2020-01-08] MEDS: ASPirin 81 mg TAB PO SCH (09:29)
[2020-01-08] MEDS: DOCUSATE SOD 100 MG CAP PO SCH (09:29)
[2020-01-08] MEDS: CARVEDILOL 3.125 MG TAB PO SCH ×2 (09:29→23:04)
[2020-01-08] MEDS: cefTRIAXone 1GM/50ML D5W 50 ML IV SCH (09:29)
[2020-01-08] MEDS: MUPIROCIN 2% OINT 15gm or 22gm TOP SCH ×2 (09:30→23:04)
[2020-01-08] MEDS: PANTOPRAZOLE 40 MG TAB PO SCH (09:30)
[2020-01-08] MEDS: POTASSIUM CHL 20MEQ/100ML 100 ML IV SCH ×2 (10:28→12:57)
[2020-01-08 12:00] VITALS: BP 102/50
--- NOTE | 2020-01-08 15:00 | NUR ---
OPTIFOAM GENTLE SACRAL DRESSING APPLIED PREVENTATIVE MEASURE
[2020-01-08] MEDS: IRON SUCROSE COMPLEX 200 MG in SODIUM CHL 0.9% 100 ML IV SCH (15:28)
--- NOTE | 2020-01-08 15:45 | NUR ---
DR Twila SANDERSON BEDSIDE WITH PATIENT DISCUSSING PLAN OF CARE
--- NOTE | 2020-01-08 15:50 | NUR ---
PATIENT STILL REFUSING VQ SCAN AND ANGIOGRAM
[2020-01-08 16:48] VITALS: BP 152/69
--- NOTE | 2020-01-08 19:40 | NUR ---
Opening Shift Note Assumed care of patient, awake and alert. No S/S of distress/SOB or pain. Bed in lowest locked position, side rails up x2, call light within reach, bed alarm on. Patient aware to call for assistance before ambulating, patient verbalized understanding. Instructed on POC and to call for assist PRN, will continue to monitor for changes Q1hr and PRN.
[2020-01-08 22:00] VITALS: BP 144/65
[2020-01-09] MEDS: SODIUM CHLORIDE 0.9% 1,000 ML IV SCH (02:10)
[2020-01-09 05:43] VITALS: BP 124/53
[2020-01-09] MEDS: ACCU-CHEK COMFORT CURVE STRIP VI SCH (06:26)
[2020-01-09] MEDS: FERROUS SULFATE 325 MG TAB PO SCH ×3 (06:26→08:07)
[2020-01-09 06:32] LABS: Potassium 3.4 mmol/L (3.5-5.1)
[2020-01-09] MEDS: InsuLIN REG 1unit/0.01ml Soln (100units/ml) SC SCH (06:32)
--- NOTE | 2020-01-09 06:41 | NUR ---
Patient lying in bed, eyes closed, respirations even and unlabored, appears asleep. No s/s of distress. Call light within reach. Will endorse care to dayshift RN.
[2020-01-09 06:42] LABS: BUN/Creatinine Ratio 20.8
[2020-01-09 06:47] LABS: Calcium 5.9 mg/dL (8.5-10.1)
[2020-01-09] MEDS: cefTRIAXone 1GM/50ML D5W 50 ML IV SCH (08:07)
[2020-01-09 08:52] VITALS: BP 126/45
--- NOTE | 2020-01-09 09:05 | NUR ---
PATIENTS IV INFILTRATED. IV REMOVED WITH CATHETER INTACT. PATIENT REFUSING PLACEMENT OF NEW IV. WILL NOTIFY DOCTOR
--- NOTE | 2020-01-09 09:15 | NUR ---
PAGED DR LUNA TO INFORM OF LAB VALUES AND ALSO CONFIRM IF PATIENT IS CLEARED FOR D/C FROM HIS STANDPOINT
[2020-01-09] MEDS: ASPirin 81 mg TAB PO SCH (09:39)
[2020-01-09] MEDS: CARVEDILOL 3.125 MG TAB PO SCH (09:39)
[2020-01-09] MEDS: DOCUSATE SOD 100 MG CAP PO SCH (09:39)
[2020-01-09] MEDS: PANTOPRAZOLE 40 MG TAB PO SCH (09:40)
[2020-01-09] MEDS: MUPIROCIN 2% OINT 15gm or 22gm TOP SCH (09:40)
--- NOTE | 2020-01-09 09:52 | NUR ---
PAGED DR Twila SANDERSON. WILL INFORM OF PATIENTS LAB VALUES, AND COREG BEING HELD DUE TO BRADYCARDIA, HR ONLY 51
[2020-01-09] MEDS ORDERED: POTASSIUM CHL 20 Meq TABLET PO ONE (10:30)
--- NOTE | 2020-01-09 10:37 | NUR ---
INFORMED DR SANDERSON OF PATIENT REFUSING NEW IV, AND OF NEW POTASSIUM AND CALCIUM LEVELS. PATIENT IS INSISTING ON GOING HOME TODAY. DR SANDERSON TALKED TO THE PATIENT AND EXPLAINED SHE WOULD BE LEAVING AGAINST MEDICAL ADVICE. HE ALSO EXPLAINED TO HER THE RISKS OF ABNORMAL ELECTROLYTE LEVELS. I ALSO EXPLAINED TO THE PATIENT THE RISKS OF ABNORMAL ELECTROLYTE LEVELS. PATIENT UNDERSTANDS THE RISKS AND UNDERSTANDS SHE HAS NOT BEEN CLEARED FOR DISCHARGE BY THE DOCTORS INVOLVED IN HER CARE.
[2020-01-09] MEDS ORDERED: CALCIUM GLUC 4.65meq/50ml D5AE 50 ML IV ONE (10:45)
--- NOTE | 2020-01-09 11:00 | NUR ---
INFORMED PATIENTS ANASTACIA NOVOA, , THAT PATIENT IS LEAVING AGAINST MEDICAL ADVICE. EXPLAINED PATIENT IS LEAVING WITH TEE CATHETER AND THE RISKS INVOLVED WITH IT, SUCH INFECTION. PROVIDED HIM WITH THINGS TO WATCH, LIKE BLOOD IN URINE, OR PAIN, AND THAT PATIENT NEEDS TO GO BACK TO AN ER WITH ANY COMPLICATIONS. ANASTACIA STATED HE UNDERSTANDS THE RISKS AND WILL WATCH FOR ISSUES WITH CATHETER. HE ALSO UNDERSTANDS THE CATHETER IS ONLY TEMPORARY, PATIENT NEEDS TO FOLLOW UP WITH UROLOGIST.
[2020-01-09] MEDS ORDERED: MUPI2OIN2 TOP (11:14)
--- NOTE | 2020-01-09 12:20 | NUR ---
AMA Note DEBRA ALBARADO states she wants to leave the hospital Against Medical Advice (AMA). Patient encouraged to stay for further treatment/stabilization. Tevin Winkler MD notified of patient's wishes and spoke to patient. Patient advised of the risks of leaving AMA. Patient verbalized understanding. Patient encouraged to return to the ER if symptoms do not improve or worsen. Patient and family educated on Coates Catheter patient is going home with, explained in detail the risks, and signs to watch for and encouraged to return back to ER with any problem.
--- NOTE | 2020-01-09 12:20 | NUR ---
Patient taken to vehicle via wheelchair with all personal belongings to patients sister, Rubi. Patient accompanied by staff member. Patients sister, Rubi, also educated on pardo catheter and risks of leaving AMA.
== END 2020-01-09 12:18 | disposition left against medical advice (07) | DRG 689 ==
LOC: EDBD 17:37 → ER 17:37 → TELE 17:38 → DOU IN ICU 01-03 01:52 → TELE-EAST 01-08 06:17
PROVIDERS: ADMIT Hospitalist; ATTEND Hospitalist
PROC: 30233N1 Transfusion of Nonautologous Red Blood Cells into Peripheral Vein, Percutaneous Approach (ICD-10-PCS; principal; 2020-01-03)
DX: N13.6 Pyonephrosis (principal); I21.4 Non-ST elevation (NSTEMI) myocardial infarction; E87.2 Acidosis; D62 Acute posthemorrhagic anemia; E87.1 Hypo-osmolality and hyponatremia; I31.3 Pericardial effusion (noninflammatory); N18.4 Chronic kidney disease, stage 4 (severe); N17.9 Acute kidney failure, unspecified; R79.89 Other specified abnormal findings of blood chemistry; I48.91 Unspecified atrial fibrillation; D63.8 Anemia in other chronic diseases classified elsewhere; E11.22 Type 2 diabetes mellitus with diabetic chronic kidney disease; E27.8 Other specified disorders of adrenal gland; E83.51 Hypocalcemia; E87.6 Hypokalemia; K21.9 Gastro-esophageal reflux disease without esophagitis; D50.9 Iron deficiency anemia, unspecified; I70.0 Atherosclerosis of aorta; N31.9 Neuromuscular dysfunction of bladder, unspecified; E11.65 Type 2 diabetes mellitus with hyperglycemia; I65.22 Occlusion and stenosis of left carotid artery; B95.62 Methicillin resistant Staphylococcus aureus infection as the cause of diseases classified elsewhere; Z53.29 Procedure and treatment not carried out because of patient's decision for other reasons; N32.89 Other specified disorders of bladder; Z79.84 Long term (current) use of oral hypoglycemic drugs; Z82.49 Family history of ischemic heart disease and other diseases of the circulatory system; Z83.3 Family history of diabetes mellitus; Z90.710 Acquired absence of both cervix and uterus; Z90.49 Acquired absence of other specified parts of digestive tract; Z88.8 Allergy status to other drugs, medicaments and biological substances; Z88.6 Allergy status to analgesic agent; Z79.899 Other long term (current) drug therapy; I12.9 Hypertensive chronic kidney disease with stage 1 through stage 4 chronic kidney disease, or unspecified chronic kidney disease
CPT/HCPCS: 36415; 36600; 51702; 71045; 74176; 76775; 78452; 80048; 80053; 80061; 81001; 82040; 82270; 82805; 82962; 83605; 83735; 83880; 84100; 84132; 84443; 84484; 85007; 85025; 85027; 85379; 85610; 85730; 86850; 86900; 86901; 86920; 87040; 87081; 87086; 93005; 93017; 93306; 93886; 93970; 96365; 96372; 96375; G0378; J0153; J0610; J0696; J1756; J1815; J3480

== ENCOUNTER 2020-03-03 03:59 | Inpatient (IN) | payer OTHER ==
[~2020-03-03] VITALS: Ht 152.4 cm; Wt 76.5 kg
[~2020-03-03 03:59] MED LIST: GLIP5TAB12 PO; HYDR25TA4 PO; MUPI2OIN2 TOP; NIFE1TAB30 PO; OMEP20TA PO; OXY5T PO
[2020-03-03] MEDS ORDERED: methylPREDNISolone SOD SUCC 125 MG/2 ML VL ONE (04:42)
[2020-03-03] MEDS ORDERED: methylPREDNISolone SOD SUCC 125 MG/2 ML VL IV ONE (05:00)
[2020-03-03 05:15] LABS: White Blood Cell 15.8 10^3/uL (4.4-10.8)
[2020-03-03] MEDS ORDERED: ALBUTEROL SULF 2.5 MG/0.5ML(0.5%) NEB SOLN HHN ONE (05:15)
[2020-03-03] MEDS ORDERED: IPRATROPIUM BROM 0.5 MG/2.5ML INH SOL HHN ONE (05:15)
[2020-03-03 05:16] LABS: Hematocrit 22.1 % (36.0-46.0); Mean Corpuscular Hemoglobin 29.9 pg (28.0-32.0); Mean Corpuscular Volume 99.8 fL (80.0-100.0); Platelet Count (auto) 376 10^3/uL (140-450); Red Blood Cells 2.21 10^6/uL (4.0-5.20); Red Cell Distribution Width 17.2 % (11.8-14.3)
[2020-03-03 05:23] LABS: Hemoglobin 6.6 g/dL (12.2-16.2)
[2020-03-03 05:24] LABS: Basophils % (manual) 0 (0.0-2.0); Blast Cells 0; Myelocytes % 0; Promyelocytes % 0; Reactive Lymphocytes 0
[2020-03-03 05:34] LABS: Albumin 2.7 g/dL (3.4-5.0); Calcium 7.9 mg/dL (8.5-10.1); Magnesium 2.2 mg/dL (1.6-2.6)
[2020-03-03 05:37] LABS: Potassium 6.5 mmol/L (3.5-5.1)
[2020-03-03 05:43] LABS: BUN/Creatinine Ratio 22.1; Bilirubin, Total 0.2 mg/dL (0.2-1.0); CRP High Sensitivity 8.95 mg/dL (< 0.3); Total Protein 8.2 g/dL (6.4-8.2)
[2020-03-03] MEDS ORDERED: InsuLIN REG 1unit/0.01ml Soln (100units/ml) IV ONE (05:45)
[2020-03-03] MEDS ORDERED: SODIUM ZIRCONIUM CYCL 10 GM PAK PO ONE ×2 (05:45→09:15)
[2020-03-03] MEDS ORDERED: ALBUTEROL SULF 2.5 MG/0.5ML(0.5%) NEB SOLN NEB ONE (05:45)
[2020-03-03] MEDS ORDERED: SODIUM BICARBONATE 8.4 % INJ 50ML VIAL IV ONE ×2 (05:45→07:04)
[2020-03-03] MEDS ORDERED: CALCIUM CHL 100MG/ML 1,000 MG in D5W 5% 100 ML IV ONE (05:45)
[2020-03-03] MEDS ORDERED: DEXTROSE (50%) 50ML SYRG IV ONE (05:45)
[2020-03-03] MEDS ORDERED: CALCIUM CHLOR(10%) 100MG/ML 10ML SYRINGE IV ONE (06:16)
[2020-03-03 06:30] VITALS: BP 143/52
[2020-03-03 06:38] LABS: Band Neutrophils % (manual) 3; Eosinophils % (manual) 1 (0-7); Lymphocytes % (manual) 12 (10.0-50.0); Metamyelocytes % 1; Monocytes % (manual) 1 (0-12)
[2020-03-03] MEDS ORDERED: SODIUM BICARBONATE 50ML VIAL 50 ML in SOD CHL 0.45% 1,000 ML IV ONE (07:15)
[2020-03-03] MEDS ORDERED: SODIUM BICARBONATE 50ML VIAL 100 ML in SOD CHL 0.45% 1,000 ML IV ONE (07:45)
[2020-03-03 09:15] LABS: Urine Bacteria MANY /hpf (None Seen); Urine Blood 3+ /uL (Negative); Urine Specific Gravity 1.014 (1.001-1.035); Urine WBC 819 /hpf (0 - 5); Urine WBC Clumps PRESENT /hpf (None Seen)
[2020-03-03] MEDS ORDERED: MORPHINE SULF INJ 2 MG/ML SYRINGE 1ML IV PRN (09:15)
[2020-03-03] MEDS ORDERED: NITROGLYCERIN 0.4 MG SL TAB SL PRN (09:15)
[2020-03-03] MEDS ORDERED: FUROSEMIDE 40 MG/4 ML VIAL IV ONE (09:15)
[2020-03-03 09:42] LABS: Protein, Urine 101.4 mg/dL (0.0-11.9)
[2020-03-03] MEDS ORDERED: ALBUTEROL SULF 2.5 MG/0.5ML(0.5%) NEB SOLN NEB PRN (09:45)
[2020-03-03] MEDS ORDERED: PANTOPRAZOLE 40 MG/10 ML VIAL INJ IV ONE (09:45)
[2020-03-03] MEDS ORDERED: FUROSEMIDE 40 MG/4 ML VIAL IV SCH (10:00)
[2020-03-03 10:12] LABS: BUN/Creatinine Ratio 22.8; Calcium 9.1 mg/dL (8.5-10.1); Potassium 5.2 mmol/L (3.5-5.1)
[2020-03-03 10:37] LABS: INR 1.02 (0.9-1.15)
[2020-03-03] MEDS: BUMETANIDE 2.5mg/10ml (0.25 mg/ml) INJ IV SCH ×2 (11:26→22:37)
[2020-03-03] MEDS: NITROGLYCERIN 0.2MG/HR TOPICAL PATCH TD SCH (11:29)
[2020-03-03] MEDS: CARVEDILOL 3.125 MG TAB PO SCH ×2 (11:30→22:38)
[2020-03-03] MEDS: cefTRIAXone 1GM/50ML D5W 50 ML IV SCH (11:34)
[2020-03-03] MEDS: AZITHROMYCIN 500MG/ 250ML 250 ML IV SCH (11:37)
[2020-03-03] MEDS: IPRATROPIUM BROM 0.5 MG/2.5ML INH SOL NEB SCH ×2 (12:00→18:00)
[2020-03-03] MEDS: ALBUTEROL SULF 2.5 MG/0.5ML(0.5%) NEB SOLN NEB SCH ×2 (12:00→18:00)
[2020-03-03 12:32] LABS: Hematocrit 20.6 % (36.0-46.0)
[2020-03-03 12:59] LABS: Hemoglobin 6.3 g/dL (12.2-16.2)
[2020-03-03] MEDS ORDERED: FURO40TA4 PO (13:33)
[2020-03-03] MEDS ORDERED: POTA10TA32 PO (13:33)
[2020-03-03] MEDS ORDERED: OMEP-260 PO (13:33)
[2020-03-03] MEDS ORDERED: fentaNYL CITRATE 100 MCG/2 ML VL IV ONE (14:00)
[2020-03-03] MEDS ORDERED: MIDAZOLAM HCL 1MG/1ML-2 ML VIAL IV ONE (14:00)
[2020-03-03] MEDS ORDERED: CHOL20007 PO (14:02)
[2020-03-03] MEDS ORDERED: LIDOCAINE 2%HCL (LOCAL ANESTH.) INJ 20ML MDV ONE (14:06)
[2020-03-03 14:34] VITALS: BP 155/74
[2020-03-03] MEDS: SODIUM BICARBONATE 50ML VIAL 100 ML in SOD CHL 0.45% 1,000 ML IV SCH (14:57)
[2020-03-03] MEDS ORDERED: IOHEXOL 300 MG/ML 100ML BOTTLE IJ ONE (15:17)
[2020-03-03] MEDS: SODIUM CHLOR 0.9% PF (SALINE LOCK) 10ML VIAL/SYR IV SCH ×2 (15:57→22:37)
[2020-03-03] MEDS: FUROSEMIDE 40 MG/4 ML VIAL IV SCH (18:14)
[2020-03-03 18:50] VITALS: BP 161/81
[2020-03-03 19:05] VITALS: BP 145/73
[2020-03-03 20:36] VITALS: BP 172/85
[2020-03-03] MEDS: PANTOPRAZOLE 40 MG TAB PO SCH (22:38)
[2020-03-03 22:50] VITALS: BP 155/82
--- NOTE | 2020-03-03 22:50 | NUR ---
Telemetry admit from DEBRA MILLS admitted to Telemetry unit. Patient oriented to ASIA DACOSTA, RN primary RN, unit, room, bed, and unit policies regarding patient care and visiting hours. Patient now on continuous telemetry monitoring, tele box #26 and telemetry reading on arrival to unit is 93. Patient placed on bedside oxygen 3 L via nasal cannula, weighed by bedscale and encouraged to call if they need something. Explained plan of care, patient verbalized understanding.
[2020-03-04] VITALS (12 sets, daily range): BP systolic 128–154; BP diastolic 60–77
[2020-03-04] MEDS: SODIUM BICARBONATE 50ML VIAL 100 ML in SOD CHL 0.45% 1,000 ML IV SCH ×3 (00:01→17:15)
[2020-03-04 01:01] LABS: Hematocrit 20.5 % (36.0-46.0)
[2020-03-04 01:10] LABS: Hemoglobin 6.7 g/dL (12.2-16.2)
[2020-03-04] MEDS: IPRATROPIUM BROM 0.5 MG/2.5ML INH SOL NEB SCH ×5 (01:16→23:22)
[2020-03-04] MEDS: ALBUTEROL SULF 2.5 MG/0.5ML(0.5%) NEB SOLN NEB SCH ×5 (01:17→23:23)
--- NOTE | 2020-03-04 01:30 | NUR ---
Paged Hospitalist Patient's hemoglobin 6.7. Made MD aware of upward trend in troponin, still pending third result. Received new order to transfusion 1 unit of blood and cardiology consult. Orders read back and verified. Will continue to monitor.
--- NOTE | 2020-03-04 04:01 | NUR ---
IV removal/insertion 20g IV to the Left AC leaking. Discontinued IV with clean technique, catheter tip fully intact. Pressure dressing applied to site. Patient tolerated well. NOTE: Inserted 22g IV to the Left Forearm. Patient also has 20g IV to the Right Forearm.
[2020-03-04] MEDS: SODIUM CHLOR 0.9% PF (SALINE LOCK) 10ML VIAL/SYR IV SCH ×3 (05:47→21:43)
[2020-03-04] MEDS: FUROSEMIDE 40 MG/4 ML VIAL IV SCH ×2 (05:48→17:15)
--- NOTE | 2020-03-04 07:00 | NUR ---
Blood Transfusion Complete Blood transfusion complete at this time. Vital signs charted in transfusion spreadsheet. Patient tolerated well. Endorsed post transfusion vital signs to AM nurse.
--- NOTE | 2020-03-04 08:00 | NUR ---
Morning note Patient resting in bed with even and unlabored respirations, no distress noted. Instructed patient on POC, fall precautions and to call for assistance as needed. Patient verbalized understanding. Patient denies s/s of blood transfusion reaction. Fall precautions in place with call light within reach.
--- NOTE | 2020-03-04 08:58 | NUR ---
Paged on-call Hospitalist RE: PRN pain medication patient reports pain 9/10 in the right lower back due to nephrostomy tube. Site is clean, dry and intact. No redness or swelling noted.
[2020-03-04 09:27] LABS: Basophils # (auto) 0 10 ^3/uL (0-0.2); Eosinophils # (auto) 0 10 ^3/uL (0-0.8); Eosinophils % (auto) 0.2 % (0.0-7.0); Lymphocytes # (auto) 0.7 10 ^3/uL (0.4-5.4); Lymphocytes % (auto) 6.9 % (10.0-50.0); Monocytes # (auto) 0.6 10 ^3/uL (0-1.3)
[2020-03-04 09:29] LABS: Basophils % (auto) 0.2 % (0.0-2.0); Hematocrit 23.4 % (36.0-46.0); Hemoglobin 7.6 g/dL (12.2-16.2); Mean Corpuscular Hemoglobin 29.4 pg (28.0-32.0); Mean Corpuscular Hgb Conc. 32.4 g/dL (32.0-36.0); Mean Corpuscular Volume 90.9 fL (80.0-100.0); Monocytes % (auto) 5.9 % (0.0-12.0); Neutrophils # (auto) 8.9 10 ^3/uL (1.6-8.6); Neutrophils % (auto) 86.8 % (37.0-80.0); Platelet Count (auto) 243 10^3/uL (140-450); Red Blood Cells 2.57 10^6/uL (4.0-5.20); Red Cell Distribution Width 16.1 % (11.8-14.3); White Blood Cell 10.2 10^3/uL (4.4-10.8)
[2020-03-04 09:43] LABS: Albumin 2.5 g/dL (3.4-5.0); Calcium 7.7 mg/dL (8.5-10.1); Potassium 4.8 mmol/L (3.5-5.1)
[2020-03-04] MEDS: PANTOPRAZOLE 40 MG TAB PO SCH ×2 (09:47→21:14)
[2020-03-04] MEDS: CARVEDILOL 3.125 MG TAB PO SCH ×2 (09:47→21:42)
[2020-03-04] MEDS: BUMETANIDE 2.5mg/10ml (0.25 mg/ml) INJ IV SCH ×2 (09:47→21:43)
[2020-03-04 09:48] LABS: BUN/Creatinine Ratio 23.7; Bilirubin, Total 0.3 mg/dL (0.2-1.0); Total Protein 7.2 g/dL (6.4-8.2)
[2020-03-04] MEDS: cefTRIAXone 1GM/50ML D5W 50 ML IV SCH (09:48)
[2020-03-04] MEDS: NITROGLYCERIN 0.2MG/HR TOPICAL PATCH TD SCH ×2 (10:00→16:00)
--- NOTE | 2020-03-04 10:00 | NUR ---
Dressing changed to the site of the left nephrostomy Dressing was not intact. Dressing changed with aseptic technique. No redness or drainage noted at site. Bio-disc place. Patient tolerated well.
--- NOTE | 2020-03-04 10:11 | NUR ---
RE: cardiology/critical troponin Notified Dr. Valencia of critical troponin level. verbalized understanding. Mrs. Bella, N.P., to see patient.
--- NOTE | 2020-03-04 10:22 | NUR ---
Called pharmacy RE: IVF Medication not available. Called pharmacy to request medication. Medication to be sent to unit per cheryl Garcia tech.
--- NOTE | 2020-03-04 10:44 | NUR ---
RE: Pain medication Notified Dr. Babin RE: PRN pain medication. verbalized understanding. Orders received and read back to verify.
[2020-03-04] MEDS ORDERED: MORPHINE SULF INJ 2 MG/ML SYRINGE 1ML IV PRN (10:45)
--- NOTE | 2020-03-04 10:46 | NUR ---
RE: patient allergies Patient reports upset stomach when taking Tylenol with Codeine.
[2020-03-04] MEDS: AZITHROMYCIN 500MG/ 250ML 250 ML IV SCH (11:33)
[2020-03-04] MEDS: HYDROcodone-ACET 10/325MG TAB PO PRN (11:33)
--- NOTE | 2020-03-04 12:38 | NUR ---
Family called for an update Patient's grandson called for an update. No password on account. Phone call transferred to patient's hospital phone. Patient set up a password with RN. Update provided to patient's grandson after password was obtained.
--- NOTE | 2020-03-04 13:22 | NUR ---
at bedside - Dr. Valencia POC discussed with this RN. Orders received and read back to verify.
[2020-03-04] MEDS ORDERED: METOCLOPRAMIDE HCL 5MG/ml INJ 2ml VIAL IV PRN (13:30)
--- NOTE | 2020-03-04 14:04 | NUR ---
was at bedside- Dr. Aguilar This RN was at bedside.
--- NOTE | 2020-03-04 14:06 | NUR ---
Patient sitting at side of bed; N/V both feet dangling off of side of bed. Respirations even and unlabored, no distress noted. Patient has N/V. Emesis is yellow in color. No red noted. PRN anti-nausea medication administered per MD order.
--- NOTE | 2020-03-04 14:57 | NUR ---
POC discussed with Dr. Eagle Orders received and read back to verify.
[2020-03-04 15:51] LABS: % Iron Saturation 23.5 % (15-50)
--- NOTE | 2020-03-04 17:00 | NUR ---
RE: anti-nausea Patient reports PRN anti-nausea is not working. Patient continues to feel nausea. Message left with Dr. Babin to notify.
--- NOTE | 2020-03-04 17:27 | NUR ---
Blood transfusion started per MD order Educated patient on S/S of blood transfusion and instructed patient to notify staff immediately with any s/s or change of status. Patient verbalized understanding. Patient resting in semi-fowlers position with even and unlabored respirations, no distress noted. Blood transfusion rate started at 65 ml/hr. Call light within reach.
--- NOTE | 2020-03-04 17:30 | NUR ---
Order received Dr. Babin verbalized understanding for PRN anti-nausea medication. Order received and read back to verify.
--- NOTE | 2020-03-04 17:40 | NUR ---
RE: Urology consult - spoke to Urology consult called to Dr. Correa. MD spoke to this RN. MD updated on patient's status, lab results and urinary output. MD verbalized understanding. Bilateral nephrostomy tubes to stay in place as well as Coates catheter.
--- NOTE | 2020-03-04 17:49 | NUR ---
Blood transfusion continues Patient resting in bed in semi-fowlers position with even and unlabored respirations, no distress noted. VS assessed and documented. Patient reports itching on their back that was present prior to blood transfusion. Patient reports her back itching is a chronic issue. Instructed patient to notify staff immediately of any change in status or s/s of blood transfusion reaction. Patient verbalized understanding. Call light within reach. Blood transfusion increased to 116 ml/hr to transfuse blood over a 4 hour time period per MD order. Addendum: 03/04/20 at 1800 by Betsy Coon RN Message left with Dr. Babin to notify of patient's reported itching that is unchanged from baseline.
--- NOTE | 2020-03-04 18:01 | NUR ---
Order received Dr. Babin verbalized understanding to patient's report of itching and that patient is receiving blood transfusion. Informed MD that patient reports chronic itching in the generalized back area. Order received and read back to verify.
--- NOTE | 2020-03-04 18:10 | NUR ---
Blood transfusion continues Patient resting in bed in semi-fowlers position with even and unlabored respirations, no distress noted. RT at bedside for breathing treatment. Itching has not increased per patient. Instructed patient to notify staff immediately of any change in status or s/s of blood transfusion reaction. Patient verbalized understanding. Call light within reach.
[2020-03-04] MEDS: FERROUS SULFATE 325 MG TAB PO SCH (18:34)
[2020-03-04] MEDS: diphenhdrAMINE HCL 50 MG/1 ML VL IV PRN (18:39)
--- NOTE | 2020-03-04 18:45 | NUR ---
Output from nephrostomy tubes Left nephrostomy tube output = 600 ml of yellow urine with moderate amount of sediment Right nephrostomy tube output = 950 ml of yellow urine with sediment.
--- NOTE | 2020-03-04 18:46 | NUR ---
Closing note; Blood transfusion continues Blood transfusion continues to be administered. IV site to the LFA is clean, dry and intact. Patient resting in bed in semi-fowlers position with even and unlabored respirations, no distress noted. Itching has not increased per patient. Patient requested PRN anti-itch medication per MD order. Medication administered per MD order. Instructed patient to notify staff immediately of any change in status or s/s of blood transfusion reaction. Patient verbalized understanding. Call light within reach.
--- NOTE | 2020-03-04 19:12 | NUR ---
Care endorsed to ANNABEL Jordan.
--- NOTE | 2020-03-04 20:00 | NUR ---
Opening Shift Note Assumed care of patient, awake and alert. No S/S of distress/SOB or pain. Instructed on POC and to call for assist PRN, will continue to monitor for changes Q1hr and PRN.With ongoing blood transfusion almost finish, with Nephrostomy tube in left and right side,draining clear light yellow output, Coates cath. in place, draining yellow urine output.
[2020-03-04] MEDS ORDERED: FUROSEMIDE 100 MG/10ML VIAL IV ONE (20:15)
--- NOTE | 2020-03-04 20:20 | NUR ---
Blood transfusion done , no reaction noted.
[2020-03-04] MEDS ORDERED: EPOETIN ALFA 10,000 UNIT/1 ML VIAL SC ONE (21:00)
[2020-03-04] MEDS: FOLIC ACID 1 MG TAB PO SCH (21:42)
[2020-03-05] MEDS: SODIUM BICARBONATE 50ML VIAL 100 ML in SOD CHL 0.45% 1,000 ML IV SCH ×3 (04:55→20:15)
--- NOTE | 2020-03-05 05:00 | NUR ---
Refused to insert another i.v.line.
--- NOTE | 2020-03-05 05:00 | NUR ---
IV removal IV DC'd in the right forearm, its leaking. with sterile technique, catheter fully intact. Pressure dressing applied to site. Patient tolerated procedure well. Discharged with aftercare instructions per . Addendum: 03/05/20 at 0605 by Gwen Hall RN note patient not discharge.
[2020-03-05] MEDS: FUROSEMIDE 40 MG/4 ML VIAL IV SCH (05:23)
[2020-03-05] MEDS: SODIUM CHLOR 0.9% PF (SALINE LOCK) 10ML VIAL/SYR IV SCH ×3 (05:24→22:00)
[2020-03-05 05:34] VITALS: BP 142/72
[2020-03-05] MEDS: ALBUTEROL SULF 2.5 MG/0.5ML(0.5%) NEB SOLN NEB SCH ×3 (06:21→18:44)
[2020-03-05] MEDS: IPRATROPIUM BROM 0.5 MG/2.5ML INH SOL NEB SCH ×3 (06:21→18:44)
[2020-03-05 07:07] LABS: Albumin 2.5 g/dL (3.4-5.0); Calcium 7.2 mg/dL (8.5-10.1); Hematocrit 25.4 % (36.0-46.0); Hemoglobin 8.6 g/dL (12.2-16.2); Potassium 3.5 mmol/L (3.5-5.1)
[2020-03-05 07:11] LABS: BUN/Creatinine Ratio 25.1; Bilirubin, Total 0.4 mg/dL (0.2-1.0); Total Protein 7.1 g/dL (6.4-8.2)
--- NOTE | 2020-03-05 07:24 | NUR ---
Report given to Che Meyer, patient is resting no distress.
--- NOTE | 2020-03-05 07:25 | NUR ---
Received critical BUN Dr. Eagle aware of critical BUN.
[2020-03-05 08:00] VITALS: BP 145/57
[2020-03-05] MEDS: PANTOPRAZOLE 40 MG TAB PO SCH ×2 (09:48→22:00)
[2020-03-05] MEDS: FOLIC ACID 1 MG TAB PO SCH ×2 (09:48→22:00)
[2020-03-05] MEDS: NITROGLYCERIN 0.2MG/HR TOPICAL PATCH TD SCH (09:49)
[2020-03-05] MEDS: CARVEDILOL 3.125 MG TAB PO SCH ×2 (09:49→22:00)
[2020-03-05] MEDS: cefTRIAXone 1GM/50ML D5W 50 ML IV SCH (09:49)
--- NOTE | 2020-03-05 09:55 | NUR ---
Patient transferred to chair with standby assistance Call light within reach. Patient tolerated transfer well.
--- NOTE | 2020-03-05 10:01 | NUR ---
Received critical troponin Troponin 0.652 received. Troponin level trending down from 1.130. Dr. Valencia aware of critical troponin level.
[2020-03-05] MEDS: FERROUS SULFATE 325 MG TAB PO SCH ×3 (10:03→18:01)
[2020-03-05] MEDS: diphenhdrAMINE HCL 50 MG/1 ML VL IV PRN (10:03)
--- NOTE | 2020-03-05 10:05 | NUR ---
was at bedside - Dr. Tracy
[2020-03-05] MEDS: AZITHROMYCIN 500MG/ 250ML 250 ML IV SCH (11:00)
[2020-03-05 12:00] VITALS: BP 181/63
--- NOTE | 2020-03-05 12:18 | NUR ---
RE: Elevated BP/Notified MD Message left with Dr. Babin of patient's elevated BP of 181/63 mmHg.
--- NOTE | 2020-03-05 12:20 | NUR ---
Message left for Dr. Valencia to notify of elevated BP
--- NOTE | 2020-03-05 12:21 | NUR ---
Orders received Dr. Babin verbalized understanding RE: elevated BP. Orders received and read back to verify.
--- NOTE | 2020-03-05 12:42 | NUR ---
Orders received Dr. Valencia verbalized understanding RE: elevated BP. Orders received and read back to verify.
--- NOTE | 2020-03-05 13:14 | NUR ---
RE: Urology Dr. Correa called for an update on patient's status. Update provided. Continue POC.
[2020-03-05] MEDS ORDERED: CARVEDILOL 3.125 MG TAB PO ONE (13:15)
--- NOTE | 2020-03-05 13:26 | NUR ---
RE: BP medications Spoke with Dr. Babin RE: Coreg orders from Dr. Valencia. Dr. Babin verbalized understanding. Order received and read back to verify.
[2020-03-05 17:00] VITALS: BP 160/65
--- NOTE | 2020-03-05 17:35 | NUR ---
Patient ambulated to restroom with minimal assistance provided by staff member. Patient instructed to use call light system when finished. Patient verbalized understanding.
--- NOTE | 2020-03-05 17:40 | NUR ---
Patient had BM - patient returned to bed with no complications Patient had a small formed brown BM. Patient ambulated back to bed with minimal assistance from staff member. Call light within reach.
--- NOTE | 2020-03-05 17:42 | NUR ---
Stool specimen collected & sent to lab per MD order.
--- NOTE | 2020-03-05 18:00 | NUR ---
Attempted IV access 2 attempts made. This RN attempted and ANNABEL Huddleston, attempted. IV start not successful. Patient refused for a further attempt. Patient stated "Make the other one work for now. I'm done being poked." Bed returned to lowest locked position with call light within reach.
[2020-03-05] MEDS: cloNIDine HCL 0.1 MG TAB PO PRN (18:02)
[2020-03-05] MEDS: hydrALAZINE HCL 20 MG/ML VL IV PRN (18:10)
--- NOTE | 2020-03-05 18:48 | NUR ---
Closing note Patient resting in bed with even and unlabored respirations, no distress noted. Fall precautions in place with call light within reach.
--- NOTE | 2020-03-05 19:00 | NUR ---
Care endorsed to ANNABEL Metcalf.
--- NOTE | 2020-03-05 21:26 | NUR ---
CRITICALTROPONIN RECEIVED Received critically elevated troponin at 0.545. Dr. Valencia is aware of the patient's elevated trops.
[2020-03-05 22:00] VITALS: BP 126/59
[2020-03-05] MEDS ORDERED: CARVEDILOL 12.5 MG TAB PO SCH (22:00)
[2020-03-06] MEDS: IPRATROPIUM BROM 0.5 MG/2.5ML INH SOL NEB SCH ×5 (00:46→18:30)
[2020-03-06] MEDS: ALBUTEROL SULF 2.5 MG/0.5ML(0.5%) NEB SOLN NEB SCH ×5 (00:46→18:29)
[2020-03-06 05:00] VITALS: BP 147/65
[2020-03-06 05:37] LABS: Albumin 2.4 g/dL (3.4-5.0); Calcium 6.6 mg/dL (8.5-10.1)
[2020-03-06 05:40] LABS: BUN/Creatinine Ratio 23.8; Bilirubin, Total 0.3 mg/dL (0.2-1.0); Total Protein 6.8 g/dL (6.4-8.2)
--- NOTE | 2020-03-06 05:57 | NUR ---
RECEIVED CRITICAL BUN The patient has a BUN of 80. Dr. Eagle is aware of the patient's elevated BUN.
[2020-03-06] MEDS: SODIUM CHLOR 0.9% PF (SALINE LOCK) 10ML VIAL/SYR IV SCH ×3 (06:00→22:32)
--- NOTE | 2020-03-06 07:30 | NUR ---
RECEIVED REPORT FROM NIGHT NURSE. PATIENT RESTING IN BED, NO DISTRESS NOTED. WILL CONTINUE TO MONITOR.
[2020-03-06] MEDS ORDERED: POTASSIUM CHL 20 Meq TABLET PO ONE (08:00)
--- NOTE | 2020-03-06 08:19 | NUR ---
CRITICAL LAB VALUE TROPONIN 0.524, WILL NOTIFY PROVIDER.
[2020-03-06] MEDS: FERROUS SULFATE 325 MG TAB PO SCH ×3 (08:40→17:53)
[2020-03-06] MEDS: SODIUM BICARBONATE 50ML VIAL 100 ML in SOD CHL 0.45% 1,000 ML IV SCH (08:46)
[2020-03-06 09:00] VITALS: BP 160/83
[2020-03-06 09:44] LABS: Carcinoembryonic Antigen 1.06 ng/mL (<5.0 OR =); Folate (Folic Acid) 3.83 ng/mL (5.38-24)
[2020-03-06] MEDS: cefTRIAXone 1GM/50ML D5W 50 ML IV SCH (10:35)
[2020-03-06] MEDS: AZITHROMYCIN 500MG/ 250ML 250 ML IV SCH (10:35)
[2020-03-06] MEDS: CARVEDILOL 3.125 MG TAB PO SCH ×2 (10:36→22:26)
[2020-03-06] MEDS: PANTOPRAZOLE 40 MG TAB PO SCH ×2 (10:36→22:26)
[2020-03-06] MEDS: FOLIC ACID 1 MG TAB PO SCH ×2 (10:36→22:26)
[2020-03-06] MEDS: NITROGLYCERIN 0.2MG/HR TOPICAL PATCH TD SCH (10:37)
[2020-03-06 10:46] VITALS: BP 160/83
--- NOTE | 2020-03-06 11:00 | NUR ---
PATIENT UP TO THE CHAIR.
--- NOTE | 2020-03-06 11:28 | NUR ---
Nutrition Assessment Notes please see attached link for complete assessment [employer] needs ABW 60 [id number] kcals (23-25 kcal/kgBW), Est Protein needs: 45-48 gms/day (0.75-0.8 gm/kgBW r/t ekev RFT CKD). Will continue to monitor and reassess prn. Addendum: 03/06/20 at [address] Amended: Links added.
[2020-03-06 12:45] VITALS: BP 165/82
[2020-03-06] MEDS: SODIUM CHLORIDE 0.9% 1,000 ML IV SCH (13:57)
[2020-03-06] MEDS: HYDROcodone-ACET 10/325MG TAB PO PRN ×2 (13:58→22:25)
[2020-03-06] MEDS: cloNIDine HCL 0.1 MG TAB PO PRN (14:12)
--- NOTE | 2020-03-06 15:03 | NUR ---
assessment re: ss consult dc planning and may need help with ADL's Patient is a 74 year old female who is alert and oriented. Per patient her grandson Rupert who is her caregiver. Rupert lives with patient. Rupert cooks, cleans, and drives patient to her appointments. Patients PCP is Dr Kelley. Per patient was having shortness of breath so he called 911. Patient may need home 02 on discharge. I will continue to monitor patients post discharge needs daily. Patient has a fww and a cane for home use. Patient will return home with family on discharge. Patient verbalized understanding and agreed to discharge plan home. Addendum: 03/06/20 at 1507 by Mary RAO Amended: Links added.
[2020-03-06 16:57] VITALS: BP 151/66
--- NOTE | 2020-03-06 18:24 | NUR ---
Respiratory note: PT REFUSE MED NEB AT THIS TIME. PT STATES SHE IS NAUSEOUS AND HAS BEEN THROWING UP. PT DOES NOT WANT MED NEB FOR 0000. PT NOTIFIED TO CALL RT IF SOB OCCURS. NO DISTRESS NOTED AT THIS TIME. PULSE OX 92% ON RA, HR 56, RR 18, BILATERAL BS CLEAR.
--- NOTE | 2020-03-06 20:00 | NUR ---
Morning note Patient resting in bed with even and unlabored respirations, no distress noted. Instructed patient on POC, fall precautions and to call for assistance as needed. Patient verbalized understanding. Fall precautions in place with call light within reach.
[2020-03-06 22:00] VITALS: BP 153/73
[2020-03-06] MEDS: GABAPENTIN 100 MG CAP PO SCH (22:25)
[2020-03-07] MEDS: SODIUM CHLORIDE 0.9% 1,000 ML IV SCH ×2 (02:20→16:04)
--- NOTE | 2020-03-07 02:47 | NUR ---
Patient resting in bed with eyes closed; respirations even and unlabored, no distress noted. Call light within reach.
--- NOTE | 2020-03-07 04:47 | NUR ---
Patient ambulating to and from restroom with an unsteady gait. Minimal assistance provided by this RN. Patient returned to bed with no complications noted. Call light within reach.
[2020-03-07 05:00] VITALS: BP 156/74
[2020-03-07 05:43] LABS: Hematocrit 28.5 % (36.0-46.0); Hemoglobin 9.6 g/dL (12.2-16.2); Mean Corpuscular Hemoglobin 30.7 pg (28.0-32.0); Mean Corpuscular Hgb Conc. 33.6 g/dL (32.0-36.0); Mean Corpuscular Volume 91.6 fL (80.0-100.0); Platelet Count (auto) 223 10^3/uL (140-450); Red Blood Cells 3.11 10^6/uL (4.0-5.20); Red Cell Distribution Width 15.5 % (11.8-14.3); White Blood Cell 6.7 10^3/uL (4.4-10.8)
[2020-03-07 05:49] LABS: BUN/Creatinine Ratio 22.4; Calcium 6.8 mg/dL (8.5-10.1); Magnesium 1.6 mg/dL (1.6-2.6); Potassium 3.9 mmol/L (3.5-5.1)
[2020-03-07] MEDS: SODIUM CHLOR 0.9% PF (SALINE LOCK) 10ML VIAL/SYR IV SCH ×3 (06:00→21:48)
[2020-03-07 06:28] LABS: Band Neutrophils % (manual) 0; Basophils % (manual) 0 (0.0-2.0); Blast Cells 0; Eosinophils % (manual) 0 (0-7); Promyelocytes % 0; Reactive Lymphocytes 0
--- NOTE | 2020-03-07 06:30 | NUR ---
Nephrostomy tube output (RT) 500ml; (LT) 350 ml Urine in the left nephrostomy collection bag has a pinkish color with sediment noted. Urine in the right nephrostomy collection bag is yellow with sediment noted.
--- NOTE | 2020-03-07 06:31 | NUR ---
Closing note Patient resting in bed with even and unlabored respirations, no distress noted. Fall precautions in place with call light within reach.
[2020-03-07] MEDS: ALBUTEROL SULF 2.5 MG/0.5ML(0.5%) NEB SOLN NEB SCH ×4 (07:30→23:59)
[2020-03-07] MEDS: IPRATROPIUM BROM 0.5 MG/2.5ML INH SOL NEB SCH ×4 (07:30→23:59)
--- NOTE | 2020-03-07 07:30 | NUR ---
Care endorsed to ANNABEL Champion.
[2020-03-07 07:39] LABS: Lymphocytes % (manual) 17 (10.0-50.0); Metamyelocytes % 4; Monocytes % (manual) 1 (0-12); Myelocytes % 1
--- NOTE | 2020-03-07 08:00 | NUR ---
RECEIVED PATIENT ALERT AND ORIENTED X4, NOT IN DISTRESS, CLEAR LS IN BILATERAL LUNG LOBES, RR=18 SAT=96%, DEEP BREATHING AND COUGHING WAS ENCOURAGED, DEMONSTRATED AND VERBALIZED UNDERSTANDING, DENIED SOB AND CP AT THIS MOMENT S MARGARETH R=57 ON TELE MONITOR, ABDOMEN SOFT WITH ACTIVE BS, LAST BM THIS MORNING REPORTED, MIDDLE RT. AND LEFT BACK PIGTAIL DRAIN BAGS IN PLACE AND PATENT, DRAINING CLEAR SEROUS COLORED DRAIN, TEE CATH IN PLACE AND PATENT, DRAINING MINIMAL SEDIMENTED YELLOW URINE NOTED, GENERAL SKIN INTACT WARM TO TOUCH, DENIED PAIN, RESTING ON BED, HEAD OF BED ELEVATED, BED ON LOW POSITION, RAILS UP X2, CALL LIGHT ON REACH, WILL CONTINUE MONITORING.
[2020-03-07] MEDS: cefTRIAXone 1GM/50ML D5W 50 ML IV SCH (08:09)
[2020-03-07] MEDS: FERROUS SULFATE 325 MG TAB PO SCH ×3 (08:09→17:13)
[2020-03-07 09:00] VITALS: BP 148/60
[2020-03-07] MEDS: AZITHROMYCIN 500MG/ 250ML 250 ML IV SCH (11:03)
[2020-03-07] MEDS: FOLIC ACID 1 MG TAB PO SCH ×2 (11:03→21:43)
[2020-03-07] MEDS: CARVEDILOL 3.125 MG TAB PO SCH ×2 (11:05→21:47)
[2020-03-07] MEDS: NITROGLYCERIN 0.2MG/HR TOPICAL PATCH TD SCH (11:05)
[2020-03-07] MEDS: GABAPENTIN 100 MG CAP PO SCH ×2 (11:05→21:47)
[2020-03-07] MEDS: PANTOPRAZOLE 40 MG TAB PO SCH ×2 (11:05→21:47)
--- NOTE | 2020-03-07 11:10 | NUR ---
SIT ON BED DANGLING WITH PT, TOLERATED RANGE OF MOTION EXERCISES, BACK ON BED AND RESTING, NOT IN DISTRESS, DENIED PAIN, WILL CONTINUE MONITORING.
[2020-03-07] MEDS: PROMETHAZINE HCL 25 MG/ML 1ML IV PRN (11:13)
[2020-03-07 13:00] VITALS: BP 147/64
[2020-03-07 14:10] LABS: Immunoglobulin G, Serum 1430 mg/dL (586-1602)
[2020-03-07 17:00] VITALS: BP 162/64
[2020-03-07] MEDS: hydrALAZINE HCL 20 MG/ML VL IV PRN (17:15)
--- NOTE | 2020-03-07 18:24 | NUR ---
OUT OF BED, SITTING ON THE CHAIR FOR 3 HOURS, TOLERATING WELL, SITTING ON THE CHAIR AND WATCHING TV AT THIS MOMENT, WILL CONTINUE MONITORING.
[2020-03-07 18:58] LABS: Urine Bacteria NONE SEEN /hpf (None Seen); Urine Blood 3+ /uL (Negative); Urine Mucus FEW (None Seen); Urine Specific Gravity 1.019 (1.001-1.035); Urine WBC 133 /hpf (0 - 5)
[2020-03-07] MEDS: HYDROcodone-ACET 10/325MG TAB PO PRN (18:59)
--- NOTE | 2020-03-07 19:01 | NUR ---
BACK TO BED AND RESTING, TOLERATED DINNER WELL, URINE SAMPLE SENT TO THE LAB ORDERED FOR U/A AND U/C, RT. PIGTAIL 150CC CLEAR YELLOW COLORED OUT PUT NOTED, LT. PIGTAIL 145CC CLEAR SEROSANGUINEOUS COLORED OUT PUT NOTED, RESTING AND WATCHING TV AT THIS MOMENT.
--- NOTE | 2020-03-07 19:37 | NUR ---
REPORT WAS GIVEN TO THE PATTERN HANGER RN.
[2020-03-07 22:09] VITALS: BP 134/57
[2020-03-08] MEDS: SODIUM CHLORIDE 0.9% 1,000 ML IV SCH ×2 (05:06→18:39)
[2020-03-08] MEDS: SODIUM CHLOR 0.9% PF (SALINE LOCK) 10ML VIAL/SYR IV SCH ×3 (05:07→21:26)
[2020-03-08 05:29] VITALS: BP 129/47
[2020-03-08 07:15] LABS: Hematocrit 27.3 % (36.0-46.0); Mean Corpuscular Hemoglobin 30.7 pg (28.0-32.0); Mean Corpuscular Hgb Conc. 33.1 g/dL (32.0-36.0); Mean Corpuscular Volume 92.7 fL (80.0-100.0); Platelet Count (auto) 194 10^3/uL (140-450); Red Blood Cells 2.95 10^6/uL (4.0-5.20); Red Cell Distribution Width 15.4 % (11.8-14.3); White Blood Cell 7.6 10^3/uL (4.4-10.8)
[2020-03-08 07:37] LABS: Calcium 6.8 mg/dL (8.5-10.1); Potassium 3.6 mmol/L (3.5-5.1)
[2020-03-08 07:39] LABS: BUN/Creatinine Ratio 19.1
[2020-03-08 07:41] LABS: Basophils % (manual) 0 (0.0-2.0); Blast Cells 0; Metamyelocytes % 0; Myelocytes % 0; Promyelocytes % 0; Reactive Lymphocytes 0
[2020-03-08 08:00] VITALS: BP 145/64
--- NOTE | 2020-03-08 08:00 | NUR ---
RECEIVED PATIENT ALERT AND ORIENTED X4, NOT IN DISTRESS, CLEAR LS IN BILATERAL LUNG LOBES, RR=18 SAT=95%, DEEP BREATHING AND COUGHING WAS ENCOURAGED, DEMONSTRATED AND VERBALIZED UNDERSTANDING, DENIED SOB AND CP AT THIS MOMENT S MARGARETH R=64 ON TELE MONITOR, ABDOMEN SOFT WITH ACTIVE BS, LAST BM 03/07/20 REPORTED, MIDDLE RT. AND LEFT BACK PIGTAIL DRAIN BAGS IN PLACE AND PATENT, DRAINING CLEAR SEROUS COLORED DRAIN ON RT AND BLOOD TINGED LIGHT RED COLORED DRAIN ON LT. NOTED, TEE CATH IN PLACE AND PATENT, NO URINE DRAIN NOTED, GENERAL SKIN INTACT WARM TO TOUCH, DENIED PAIN, RESTING ON BED, HEAD OF BED ELEVATED, BED ON LOW POSITION, RAILS UP X2, CALL LIGHT ON REACH, WILL CONTINUE MONITORING.
[2020-03-08] MEDS: FERROUS SULFATE 325 MG TAB PO SCH ×3 (08:05→18:39)
[2020-03-08] MEDS: IPRATROPIUM BROM 0.5 MG/2.5ML INH SOL NEB SCH ×3 (08:29→19:06)
[2020-03-08] MEDS: ALBUTEROL SULF 2.5 MG/0.5ML(0.5%) NEB SOLN NEB SCH ×3 (08:30→19:06)
[2020-03-08 10:09] LABS: Band Neutrophils % (manual) 2; Eosinophils % (manual) 3 (0-7); Lymphocytes % (manual) 16 (10.0-50.0); Monocytes % (manual) 7 (0-12)
[2020-03-08] MEDS: cefTRIAXone 1GM/50ML D5W 50 ML IV SCH (10:17)
[2020-03-08] MEDS: FOLIC ACID 1 MG TAB PO SCH ×2 (10:17→21:26)
[2020-03-08] MEDS: PANTOPRAZOLE 40 MG TAB PO SCH ×2 (10:19→21:28)
[2020-03-08] MEDS: GABAPENTIN 100 MG CAP PO SCH ×2 (10:19→21:27)
[2020-03-08] MEDS: CARVEDILOL 3.125 MG TAB PO SCH ×2 (10:19→21:27)
[2020-03-08] MEDS: NITROGLYCERIN 0.2MG/HR TOPICAL PATCH TD SCH (10:20)
[2020-03-08] MEDS: HYDROcodone-ACET 10/325MG TAB PO PRN (10:20)
[2020-03-08 12:00] VITALS: BP 146/65
--- NOTE | 2020-03-08 16:00 | NUR ---
NOT IN DISTRESS, DENIED PAIN, OUT OF BED SITTING ON THE CHAIR, TOLERATING PROVIDED DIET WELL, SITTING ON THE CHAIR AND TALKING ON THE PHONE, WILL CONTINUE MONITORING.
[2020-03-08 17:00] VITALS: BP 146/67
--- NOTE | 2020-03-08 19:43 | NUR ---
REPORT WAS GIVEN TO THE BUILDING MAINTENANCE CUSTODIAN RN.
[2020-03-08 21:48] VITALS: BP 154/62
[2020-03-09] MEDS: IPRATROPIUM BROM 0.5 MG/2.5ML INH SOL NEB SCH ×3 (01:15→19:20)
[2020-03-09] MEDS: ALBUTEROL SULF 2.5 MG/0.5ML(0.5%) NEB SOLN NEB SCH ×3 (01:15→19:19)
--- NOTE | 2020-03-09 01:15 | NUR ---
RT NOTE: PATIENT REFUSED MED NEB TX @ THIS TIME. SPO2 98% ON 2L NASAL CANNULA, HR 60, RR 18, DIMINISHED BS T/O NO SOB OR DISTRESS NOTED.
[2020-03-09 04:51] VITALS: BP 141/68
[2020-03-09 05:32] LABS: Basophils # (auto) 0 10 ^3/uL (0-0.2); Basophils % (auto) 0.4 % (0.0-2.0); Eosinophils # (auto) 0.4 10 ^3/uL (0-0.8); Eosinophils % (auto) 4.5 % (0.0-7.0); Hematocrit 27.9 % (36.0-46.0); Lymphocytes % (auto) 11.3 % (10.0-50.0); Mean Corpuscular Hgb Conc. 32.5 g/dL (32.0-36.0); Mean Corpuscular Volume 92.6 fL (80.0-100.0); Monocytes # (auto) 0.8 10 ^3/uL (0-1.3); Monocytes % (auto) 9.1 % (0.0-12.0); Neutrophils # (auto) 6.4 10 ^3/uL (1.6-8.6); Neutrophils % (auto) 74.7 % (37.0-80.0); Platelet Count (auto) 184 10^3/uL (140-450); Red Blood Cells 3.01 10^6/uL (4.0-5.20); Red Cell Distribution Width 15.1 % (11.8-14.3); White Blood Cell 8.6 10^3/uL (4.4-10.8)
[2020-03-09 05:55] LABS: BUN/Creatinine Ratio 17.4; Calcium 7.2 mg/dL (8.5-10.1); Potassium 3.4 mmol/L (3.5-5.1)
[2020-03-09] MEDS: SODIUM CHLOR 0.9% PF (SALINE LOCK) 10ML VIAL/SYR IV SCH ×3 (06:05→22:05)
[2020-03-09 08:00] VITALS: BP 123/54
[2020-03-09] MEDS: SODIUM CHLORIDE 0.9% 1,000 ML IV SCH ×2 (08:14→20:31)
[2020-03-09] MEDS: FERROUS SULFATE 325 MG TAB PO SCH ×3 (10:03→18:22)
[2020-03-09] MEDS: FOLIC ACID 1 MG TAB PO SCH ×2 (10:04→22:06)
[2020-03-09] MEDS: cefTRIAXone 1GM/50ML D5W 50 ML IV SCH (10:04)
[2020-03-09] MEDS: GABAPENTIN 100 MG CAP PO SCH ×2 (10:09→22:07)
[2020-03-09] MEDS: PANTOPRAZOLE 40 MG TAB PO SCH ×2 (10:09→22:07)
[2020-03-09] MEDS: CARVEDILOL 3.125 MG TAB PO SCH ×2 (10:10→22:06)
[2020-03-09] MEDS: NITROGLYCERIN 0.2MG/HR TOPICAL PATCH TD SCH (10:14)
[2020-03-09] MEDS ORDERED: IOHEXOL 350 MG/ML 100ML IJ ONE (10:35)
[2020-03-09 12:00] VITALS: BP 143/60
[2020-03-09] MEDS ORDERED: IOHEXOL 300 MG/ML 100ML BOTTLE IJ ONE (13:30)
--- NOTE | 2020-03-09 14:00 | NUR ---
Patient down for nephrostogram
--- NOTE | 2020-03-09 15:45 | NUR ---
Nutrition Followup Notes Pt wt is 75.9 kg Pt is positive for COVID. Pt is with a 2g Sodium diet, appetite is fair aeb ave 42% PO intake over 3 meals. Pt with no distress per RN doc. Will continue to monitor PO status, skin status, pertinent labs and weight trends. Will f/u in 3-5 days. Est [employer] needs ABW 60 [id number] kcals (23-25 kcal/kgBW), Est Protein needs: 45-48 gms/day (0.75-0.8 gm/kgBW r/t ekev RFT CKD). Will continue to monitor and reassess prn. LABS: BUN 45 H, CR 2.59 H, GFR 19 L, GLUC 108 H, CA 7.2 L GI: Pt had 1 BM on 03/07 per RN doc BS: 20 low risk. Refer to wound assessment report for full details. PES: 1) Altered nutrition related lab values r.t current chronic medical condition aeb elev RFT hyperglycemia, mod hypoalb 2) Decreased nutrient needs r/t adiposity aeb pt`s high BMI of 32.8 kgm2 Comments 1) refer to [facility] dietitian on DC 2) consider CCHO 45 gm renal specific 40 gm protein 2 gm na diet 3) continue current plan of care
[2020-03-09] MEDS: POTASSIUM CHL 20MEQ/100ML 100 ML IV SCH ×2 (15:49→18:28)
[2020-03-09 17:00] VITALS: BP 147/66
[2020-03-09 17:15] VITALS: BP 143/60
--- NOTE | 2020-03-09 19:30 | NUR ---
Respiratory note: PT REFUSE MIDNIGHT TX AT THIS TIME, PT WANTS TO SLEEP.
[2020-03-09] MEDS: HYDROcodone-ACET 10/325MG TAB PO PRN (20:32)
[2020-03-09 22:00] VITALS: BP 158/64
[2020-03-10 05:00] VITALS: BP 133/58
[2020-03-10] MEDS: SODIUM CHLOR 0.9% PF (SALINE LOCK) 10ML VIAL/SYR IV SCH ×3 (05:48→22:00)
[2020-03-10] MEDS: ALBUTEROL SULF 2.5 MG/0.5ML(0.5%) NEB SOLN NEB SCH ×4 (07:30→23:51)
[2020-03-10] MEDS: IPRATROPIUM BROM 0.5 MG/2.5ML INH SOL NEB SCH ×4 (07:31→23:51)
[2020-03-10 08:00] VITALS: BP 153/70
[2020-03-10] MEDS: cefTRIAXone 1GM/50ML D5W 50 ML IV SCH (09:25)
[2020-03-10] MEDS: GABAPENTIN 100 MG CAP PO SCH ×2 (09:27→22:00)
[2020-03-10] MEDS: PANTOPRAZOLE 40 MG TAB PO SCH ×2 (09:27→22:00)
[2020-03-10] MEDS: FOLIC ACID 1 MG TAB PO SCH ×2 (09:27→22:00)
[2020-03-10] MEDS: FERROUS SULFATE 325 MG TAB PO SCH ×3 (09:27→18:00)
[2020-03-10] MEDS: CARVEDILOL 3.125 MG TAB PO SCH ×2 (09:28→22:00)
[2020-03-10] MEDS: NITROGLYCERIN 0.2MG/HR TOPICAL PATCH TD SCH (09:31)
[2020-03-10] MEDS: SODIUM CHLORIDE 0.9% 1,000 ML IV SCH ×2 (09:32→23:40)
[2020-03-10 11:39] LABS: Basophils # (auto) 0.1 10 ^3/uL (0-0.2); Basophils % (auto) 0.6 % (0.0-2.0); Eosinophils # (auto) 0.4 10 ^3/uL (0-0.8); Eosinophils % (auto) 3.5 % (0.0-7.0); Hematocrit 34.6 % (36.0-46.0); Hemoglobin 10.8 g/dL (12.2-16.2); Lymphocytes # (auto) 0.7 10 ^3/uL (0.4-5.4); Lymphocytes % (auto) 5.6 % (10.0-50.0); Mean Corpuscular Hemoglobin 29.5 pg (28.0-32.0); Mean Corpuscular Hgb Conc. 31.2 g/dL (32.0-36.0); Mean Corpuscular Volume 94.6 fL (80.0-100.0); Monocytes # (auto) 0.6 10 ^3/uL (0-1.3); Monocytes % (auto) 4.9 % (0.0-12.0); Neutrophils # (auto) 10.8 10 ^3/uL (1.6-8.6); Neutrophils % (auto) 85.4 % (37.0-80.0); Platelet Count (auto) 161 10^3/uL (140-450); Red Blood Cells 3.65 10^6/uL (4.0-5.20); Red Cell Distribution Width 15.8 % (11.8-14.3); White Blood Cell 12.6 10^3/uL (4.4-10.8)
[2020-03-10 11:48] LABS: BUN/Creatinine Ratio 14.8; Calcium 7.6 mg/dL (8.5-10.1); Potassium 5.1 mmol/L (3.5-5.1)
[2020-03-10 12:00] VITALS: BP 149/66
[2020-03-10] MEDS ORDERED: LIDOCAINE 2%HCL (LOCAL ANESTH.) INJ 20ML MDV ONE (13:18)
--- NOTE | 2020-03-10 13:36 | NUR ---
Patient going down to radiology to get right nephrostomy tube removed.
--- NOTE | 2020-03-10 15:45 | NUR ---
IV insertion IV access obtained, via clean sterile technique by inserting 22 gauge catheter at [facility] after one attempt. IV secured properly. No trauma to site. Patient tolerated well.
[2020-03-10 17:00] VITALS: BP 136/78
--- NOTE | 2020-03-10 19:30 | NUR ---
Opening Shift Note Assumed care of patient, awake, AAOx4. No S/S of distress/SOB or pain. On 2L oxygen via nasal cannula. Patient is standby assist to toilet. Coates catheter patent and draining to gravity. Left nephrostomy noted, patent and draining. Bed in lowest locked position, side rails up x2, call light within reach. Instructed on POC and to call for assist PRN, will continue to monitor for changes Q1hr and PRN.
[2020-03-11] MEDS: SODIUM CHLOR 0.9% PF (SALINE LOCK) 10ML VIAL/SYR IV SCH ×2 (04:30→12:55)
[2020-03-11] MEDS: ALBUTEROL SULF 2.5 MG/0.5ML(0.5%) NEB SOLN NEB SCH ×3 (06:07→18:36)
[2020-03-11] MEDS: IPRATROPIUM BROM 0.5 MG/2.5ML INH SOL NEB SCH ×3 (06:07→18:36)
[2020-03-11 08:13] VITALS: BP 121/44
[2020-03-11] MEDS: FERROUS SULFATE 325 MG TAB PO SCH ×3 (09:45→18:18)
[2020-03-11] MEDS: cefTRIAXone 1GM/50ML D5W 50 ML IV SCH (09:45)
[2020-03-11] MEDS: FOLIC ACID 1 MG TAB PO SCH ×2 (09:46→21:51)
[2020-03-11] MEDS: CARVEDILOL 3.125 MG TAB PO SCH ×2 (09:46→21:51)
[2020-03-11] MEDS: GABAPENTIN 100 MG CAP PO SCH ×2 (09:48→21:51)
[2020-03-11] MEDS: PANTOPRAZOLE 40 MG TAB PO SCH ×2 (09:48→21:51)
[2020-03-11] MEDS: NITROGLYCERIN 0.2MG/HR TOPICAL PATCH TD SCH (09:49)
--- NOTE | 2020-03-11 11:02 | NUR ---
IV insertion IV access obtained, via clean sterile technique by inserting 22 gauge catheter at RIGHT FOREARM after ONE attempt. IV secured properly. No trauma to site. Patient tolerated well. PATIENTS IV INSERTED YESTERDAY 03/10 WAS INFILTRATED PER NIGHT RN REPORT AND WAS REMOVED.
[2020-03-11] MEDS: FLUCONAZOLE 200MG/100ML 100 ML IV SCH (11:29)
[2020-03-11] MEDS: SODIUM CHLORIDE 0.9% 1,000 ML IV SCH (12:54)
[2020-03-11 13:00] VITALS: BP 130/43
--- NOTE | 2020-03-11 15:19 | NUR ---
Patient refused PT. ANNABEL Vera was notified. Addendum: 03/11/20 at 1519 by SHEILA DOHERTY PTT Amended: Links added.
[2020-03-11 16:51] VITALS: BP 146/60
[2020-03-11 20:00] VITALS: BP 128/42
[2020-03-11 22:00] VITALS: BP 143/58
[2020-03-12] MEDS: ALBUTEROL SULF 2.5 MG/0.5ML(0.5%) NEB SOLN NEB SCH ×5 (00:04→22:49)
[2020-03-12] MEDS: IPRATROPIUM BROM 0.5 MG/2.5ML INH SOL NEB SCH ×5 (00:04→22:49)
[2020-03-12] MEDS: SODIUM CHLORIDE 0.9% 1,000 ML IV SCH ×2 (02:20→14:51)
[2020-03-12] MEDS: HYDROcodone-ACET 10/325MG TAB PO PRN (04:47)
[2020-03-12] MEDS: SODIUM CHLOR 0.9% PF (SALINE LOCK) 10ML VIAL/SYR IV SCH ×4 (04:48→23:10)
--- NOTE | 2020-03-12 05:38 | NUR ---
PT SITTING UP IN CHAIR. DOES NOT WANT TO BE RECONNECTED TO IV PUMP AT THIS TIME.
[2020-03-12 06:00] VITALS: BP 136/56
[2020-03-12 07:27] LABS: Basophils # (auto) 0 10 ^3/uL (0-0.2); Basophils % (auto) 0.3 % (0.0-2.0); Eosinophils # (auto) 0.3 10 ^3/uL (0-0.8); Eosinophils % (auto) 3.9 % (0.0-7.0); Hematocrit 28.2 % (36.0-46.0); Hemoglobin 9.2 g/dL (12.2-16.2); Lymphocytes # (auto) 0.8 10 ^3/uL (0.4-5.4); Lymphocytes % (auto) 9.4 % (10.0-50.0); Mean Corpuscular Hemoglobin 30.4 pg (28.0-32.0); Mean Corpuscular Hgb Conc. 32.5 g/dL (32.0-36.0); Mean Corpuscular Volume 93.4 fL (80.0-100.0); Monocytes # (auto) 0.7 10 ^3/uL (0-1.3); Monocytes % (auto) 8.4 % (0.0-12.0); Neutrophils # (auto) 6.5 10 ^3/uL (1.6-8.6); Platelet Count (auto) 165 10^3/uL (140-450); Red Blood Cells 3.02 10^6/uL (4.0-5.20); Red Cell Distribution Width 15.6 % (11.8-14.3); White Blood Cell 8.3 10^3/uL (4.4-10.8)
[2020-03-12 07:52] LABS: BUN/Creatinine Ratio 15.1; Calcium 7.8 mg/dL (8.5-10.1); Magnesium 1.4 mg/dL (1.6-2.6)
[2020-03-12] MEDS: FERROUS SULFATE 325 MG TAB PO SCH ×2 (08:16→17:55)
[2020-03-12 09:00] VITALS: BP 138/56
[2020-03-12] MEDS: cefTRIAXone 1GM/50ML D5W 50 ML IV SCH (09:05)
[2020-03-12] MEDS: FOLIC ACID 1 MG TAB PO SCH ×2 (10:02→23:10)
[2020-03-12] MEDS: GABAPENTIN 100 MG CAP PO SCH ×2 (10:02→23:09)
[2020-03-12] MEDS: PANTOPRAZOLE 40 MG TAB PO SCH ×2 (10:02→23:09)
[2020-03-12] MEDS: PROMETHAZINE HCL 25 MG/ML 1ML IV PRN (10:02)
[2020-03-12] MEDS: CARVEDILOL 3.125 MG TAB PO SCH ×2 (10:03→23:09)
[2020-03-12] MEDS: NITROGLYCERIN 0.2MG/HR TOPICAL PATCH TD SCH (10:04)
[2020-03-12] MEDS: FLUCONAZOLE 200MG/100ML 100 ML IV SCH (10:05)
[2020-03-12 13:00] VITALS: BP 119/52
[2020-03-12] MEDS ORDERED: DOCUSATE SOD 100 MG CAP PO ONE (15:30)
[2020-03-12 16:15] VITALS: BP 156/64
--- NOTE | 2020-03-12 19:15 | NUR ---
Fall CASE LINER Responded to patient's call light and found patient on the floor. She called for help. Went in and the patient stated that she was on her way to the bathroom when she slipped and fell. Patient assisted back to bed and vitals taken. Patient states she is in no pain at this time. T. 98.7, P. 95, R. 18, B/P 159/87. Will page hospitalist
--- NOTE | 2020-03-12 19:30 | NUR ---
On-Call Hospitalist paged Paged on-call hospitalist to call hourly shift RN regarding fall.
[2020-03-12 21:34] VITALS: BP 137/54
[2020-03-12] MEDS ORDERED: SENNA 8.6 MG TAB PO SCH (22:00)
[2020-03-12 22:50] VITALS: BP 137/54
[2020-03-12] MEDS: DOCUSATE SOD 100 MG CAP PO SCH (23:09)
[2020-03-13 05:00] VITALS: BP 131/54
[2020-03-13] MEDS: SODIUM CHLORIDE 0.9% 1,000 ML IV SCH (05:00)
[2020-03-13] MEDS: ALBUTEROL SULF 2.5 MG/0.5ML(0.5%) NEB SOLN NEB SCH ×2 (06:00→12:00)
[2020-03-13] MEDS: IPRATROPIUM BROM 0.5 MG/2.5ML INH SOL NEB SCH ×2 (06:00→12:00)
--- NOTE | 2020-03-13 06:25 | NUR ---
PT REFUSED 0600 SCHEDULED HHN TX. PT IS ON 2LNC, SPO2 100%, HR 59, RR 20. NO S/S OF RESPIRATORY DISTRESS. ANNABEL GONZALEZ IS AWARE OF PT REFUSAL. WILL CONTINUE TO MONITOR.
[2020-03-13 06:51] LABS: Potassium 3.8 mmol/L (3.5-5.1)
[2020-03-13 06:56] LABS: BUN/Creatinine Ratio 15.8; Magnesium 1.7 mg/dL (1.6-2.6)
[2020-03-13 06:58] LABS: Hematocrit 28.8 % (36.0-46.0); Hemoglobin 9.4 g/dL (12.2-16.2); Mean Corpuscular Hemoglobin 30.6 pg (28.0-32.0); Mean Corpuscular Hgb Conc. 32.6 g/dL (32.0-36.0); Mean Corpuscular Volume 93.8 fL (80.0-100.0); Platelet Count (auto) 169 10^3/uL (140-450); Red Blood Cells 3.07 10^6/uL (4.0-5.20); Red Cell Distribution Width 15.2 % (11.8-14.3); White Blood Cell 14.3 10^3/uL (4.4-10.8)
[2020-03-13 07:02] LABS: Band Neutrophils % (manual) 0; Basophils % (manual) 0 (0.0-2.0); Blast Cells 0; Eosinophils % (manual) 0 (0-7); Metamyelocytes % 0; Myelocytes % 0; Promyelocytes % 0; Reactive Lymphocytes 0
[2020-03-13 07:03] LABS: INR 1.01 (0.9-1.15); Partial Thromboplastin Time 31.6 sec (23.64-32.05)
[2020-03-13] MEDS: SODIUM CHLOR 0.9% PF (SALINE LOCK) 10ML VIAL/SYR IV SCH ×2 (07:55→14:36)
[2020-03-13] MEDS: FERROUS SULFATE 325 MG TAB PO SCH ×2 (08:00→11:50)
[2020-03-13] MEDS ORDERED: IOHEXOL 300 MG/ML 100ML BOTTLE IJ ONE (08:37)
--- NOTE | 2020-03-13 08:45 | NUR ---
Pt refused PT tx. This CLINICAL FIELD SPECIALIST & the RN attempted to encourage her but the pt continued to refuse. Addendum: 03/13/20 at 1221 by Tej Palmer CLINICAL FIELD SPECIALIST Amended: Links added.
[2020-03-13 08:57] LABS: Lymphocytes % (manual) 7 (10.0-50.0); Monocytes % (manual) 11 (0-12)
[2020-03-13 09:00] VITALS: BP 120/50
[2020-03-13] MEDS: NITROGLYCERIN 0.2MG/HR TOPICAL PATCH TD SCH (10:00)
[2020-03-13] MEDS: FLUCONAZOLE 200MG/100ML 100 ML IV SCH (10:07)
[2020-03-13] MEDS: cefTRIAXone 1GM/50ML D5W 50 ML IV SCH (10:07)
[2020-03-13] MEDS: PANTOPRAZOLE 40 MG TAB PO SCH (10:09)
[2020-03-13] MEDS: DOCUSATE SOD 100 MG CAP PO SCH (10:10)
[2020-03-13] MEDS: FOLIC ACID 1 MG TAB PO SCH (10:10)
[2020-03-13] MEDS: GABAPENTIN 100 MG CAP PO SCH (10:10)
[2020-03-13] MEDS: CARVEDILOL 3.125 MG TAB PO SCH (10:11)
--- NOTE | 2020-03-13 11:00 | NUR ---
Hospitalist Rounded Dr. Babin at bedside.
--- NOTE | 2020-03-13 11:28 | NUR ---
Nutrition Followup Notes Pt wt is 75.9 kg Pt`s with MD at bedside per records pt to have cystoscopy and is currently NPO for same. pt was on 2 gm na diet before Will f/u in 2-3 days. Est [employer] needs ABW 60 [id number] kcals (23-25 kcal/kgBW), Est Protein needs: 45-48 gms/day (0.75-0.8 gm/kgBW r/t ekev RFT CKD). Will continue to monitor and reassess prn. LABS: BUN 46 H, CREAT 2.91 H CA 8.0 L GLU 167 H GI: Pt had 1 BM today per RN doc BS: 19 low risk. Refer to wound assessment report for full details. PES: 1) Altered nutrition related lab values r.t current chronic medical condition aeb elev RFT hyperglycemia, mod hypoalb 2) Decreased nutrient needs r/t adiposity aeb pt`s high BMI of 32.8 kgm2 Comments 1) refer to [facility] dietitian on DC. 2) [facility]m renal specific 40 gm protein 2 gm na diet 3) continue current plan of care
--- NOTE | 2020-03-13 11:30 | NUR ---
Off Unit Patient taken to pre-op for procedure.
--- NOTE | 2020-03-13 14:30 | NUR ---
Patient for discharge home, her sister will pick her up at 1730.
--- NOTE | 2020-03-13 14:40 | NUR ---
On Unit Patient brought back to unit. Procedure was not done.
--- NOTE | 2020-03-13 15:47 | NUR ---
D/C Planning Regarding social service consult for home health safety evaluation and nephrostomy care. Faxed clinical information to [facility] and [facility]. Per Maria T with with [facility] they can accept patient within 24-48hrs upon d/c day. Informed ANNABEL Jenkins.
[2020-03-13 15:55] VITALS: BP 128/54
[2020-03-13 17:00] VITALS: BP 128/54
--- NOTE | 2020-03-13 17:00 | NUR ---
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 Mejias (inspector shells) on 03/15. She will keep appointment.
--- NOTE | 2020-03-13 18:10 | NUR ---
Discharge instructions given as ordered. Encourage to follow up with PMD as instructed. All questions and concerns addressed. Patient verbalized understanding. Medication reconciliation form completed and copy given to patient. IV removed with catheter intact and pressure dressing applied. Order for patient to go home with Coates catheter and nephrostomy tube. Telemetry unit returned to ICU. Patient taken to vehicle via wheelchair with all personal belongings, accompanied by staff. No distress noted at time of departure.
== END 2020-03-13 18:10 | disposition home health service (06) | DRG 689 ==
LOC: EDBD 03:59 → ER 04:02 → TELE 04:03 → TELE-CENTR 22:50
PROVIDERS: ADMIT Internal Medicine; ATTEND Internal Medicine
PROC: 30233N1 Transfusion of Nonautologous Red Blood Cells into Peripheral Vein, Percutaneous Approach (ICD-10-PCS; principal; 2020-03-03)
PROC: 0T9430Z Drainage of Left Kidney Pelvis with Drainage Device, Percutaneous Approach (ICD-10-PCS; 2020-03-03)
PROC: 0T9330Z Drainage of Right Kidney Pelvis with Drainage Device, Percutaneous Approach (ICD-10-PCS; 2020-03-03)
PROC: 5A09357 Assistance with Respiratory Ventilation, Less than 24 Consecutive Hours, Continuous Positive Airway Pressure (ICD-10-PCS; 2020-03-03)
PROC: BT131ZZ Fluoroscopy of Bilateral Kidneys using Low Osmolar Contrast (ICD-10-PCS; 2020-03-10)
DX: N13.6 Pyonephrosis (principal); I21.A1 Myocardial infarction type 2; J96.01 Acute respiratory failure with hypoxia; I50.33 Acute on chronic diastolic (congestive) heart failure; J90 Pleural effusion, not elsewhere classified; I13.0 Hypertensive heart and chronic kidney disease with heart failure and stage 1 through stage 4 chronic kidney disease, or unspecified chronic kidney disease; E87.2 Acidosis; B37.49 Other urogenital candidiasis; N17.9 Acute kidney failure, unspecified; N18.4 Chronic kidney disease, stage 4 (severe); E87.5 Hyperkalemia; E66.01 Morbid (severe) obesity due to excess calories; E11.22 Type 2 diabetes mellitus with diabetic chronic kidney disease; E88.09 Other disorders of plasma-protein metabolism, not elsewhere classified; Z20.828 Contact with and (suspected) exposure to other viral communicable diseases; D63.8 Anemia in other chronic diseases classified elsewhere; E87.6 Hypokalemia; N31.9 Neuromuscular dysfunction of bladder, unspecified; Z79.82 Long term (current) use of aspirin; Z82.49 Family history of ischemic heart disease and other diseases of the circulatory system; Z86.14 Personal history of Methicillin resistant Staphylococcus aureus infection; Z90.49 Acquired absence of other specified parts of digestive tract; Z90.710 Acquired absence of both cervix and uterus; Z87.440 Personal history of urinary (tract) infections; Z83.3 Family history of diabetes mellitus; Z88.1 Allergy status to other antibiotic agents; Z88.5 Allergy status to narcotic agent; Z68.35 Body mass index [BMI] 35.0-35.9, adult
CPT/HCPCS: 10022; 36415; 36430; 36600; 50430; 50432; 71045; 74018; 74176; 74425; 76775; 76942; 77012; 80048; 80053; 81001; 82270; 82306; 82378; 82550; 82570; 82607; 82728; 82746; 82784; 82805; 83010; 83036; 83540; 83550; 83605; 83615; 83735; 83880; 83970; 84100; 84155; 84156; 84165; 84300; 84484; 85007; 85014; 85018; 85025; 85027; 85045; 85379; 85610; 85730; 86141; 86334; 86335; 86850; 86880; 86900; 86901; 86922; 87040; 87081; 87086; 93005; 94640; 94644; 94660; 96365; 96366; 96367; 96368; 96375; 97110; 97116; 97530; 99291; C1729; C9113; G0378; J0696; J0885; J1450; J1815; J2250; J3480; J7060